=== PATIENT | male | born 1970 | race Two or more races ===

== ENCOUNTER 2022-03-01 12:35 | Inpatient (IN) | payer BC, OTHER ==
[~2022-03-01] VITALS: Ht 195.6 cm; Wt 123.6 kg
[2022-03-01 13:26] LABS: Basophils # (auto) 0.1 10 ^3/uL (0-0.2); Basophils % (auto) 1.8 % (0.0-2.0); Eosinophils # (auto) 0.2 10 ^3/uL (0-0.8); Eosinophils % (auto) 2.1 % (0.0-7.0); Hematocrit 37.4 % (41.0-53.0); Hemoglobin 13.1 g/dL (13.5-17.5); Lymphocytes # (auto) 0.8 10 ^3/uL (0.4-5.4); Lymphocytes % (auto) 11.2 % (10.0-50.0); Mean Corpuscular Hemoglobin 28.3 pg (28.0-32.0); Mean Corpuscular Volume 80.8 fL (80.0-100.0); Monocytes # (auto) 0.5 10 ^3/uL (0-1.3); Monocytes % (auto) 6.4 % (0.0-12.0); Neutrophils # (auto) 5.8 10 ^3/uL (1.6-8.6); Neutrophils % (auto) 78.5 % (37.0-80.0); Nucleated Red Blood Cells % 0.1 %; Red Blood Cells 4.62 10^6/uL (4.5-5.90); Red Cell Distribution Width 14.5 % (11.8-14.3); White Blood Cell 7.4 10^3/uL (4.4-10.8)
[2022-03-01 14:30] LABS: Potassium 3.7 mmol/L (3.5-5.1)
[2022-03-01 14:35] LABS: Albumin 2.3 g/dL (3.4-5.0); BUN/Creatinine Ratio 19.6; Bilirubin, Total 0.8 mg/dL (0.2-1.0); Total Protein 5.8 g/dL (6.4-8.2)
[2022-03-01 20:30] VITALS: BP 116/78
[2022-03-01 21:00] VITALS: BP 116/78
[2022-03-01] MEDS: BUMETANIDE 2.5mg/10ml (0.25 mg/ml) INJ IV SCH (22:04)
[2022-03-01] MEDS ORDERED: KETOROLAC TROMETH 30 MG/ML 1ML VIAL IV ONE (23:15)
[2022-03-01] MEDS ORDERED: ADENOSINE 6 MG/2 ML INJ IV ONE ×3 (23:27→23:34)
[2022-03-01] MEDS: AMIODARONE HCL (50 MG/ ML) 3 ML VIAL IV ONE ×2 (23:39→23:58)
[2022-03-01] MEDS ORDERED: AMIODARONE 450mg/250ml AE 250 ML IV ONE (23:40)
[2022-03-02] VITALS (70 sets, daily range): BP systolic 94–181; BP diastolic 53–150
[2022-03-02] MEDS ORDERED: EMPA1TAB PO (00:53)
[2022-03-02] MEDS ORDERED: SACU1TAB4 PO (00:53)
[2022-03-02] MEDS ORDERED: CARV25TA55 PO (00:53)
[2022-03-02] MEDS ORDERED: ATOR80TA PO (00:53)
[2022-03-02] MEDS ORDERED: EPLE25TA4 PO (00:53)
[2022-03-02] MEDS ORDERED: FURO40TA4 PO (00:53)
[2022-03-02] MEDS ORDERED: CHOL200021 PO (00:53)
[2022-03-02] MEDS ORDERED: ALBUMIN 5% 250 ML IV ONE (01:00)
[2022-03-02] MEDS: THROAT LOZENGES(CEPASTAT) MT PRN ×3 (01:08→13:05)
[2022-03-02] MEDS ORDERED: AMIODARONE HCL 150 MG in D5W 5% 100 ML IV ONE (01:45)
[2022-03-02] MEDS ORDERED: AMIODARONE 450mg/250ml AE 250 ML IV SCH (02:00)
[2022-03-02 03:01] LABS: Calcium 7.4 mg/dL (8.5-10.1); Magnesium 1.9 mg/dL (1.6-2.6); Potassium 3.5 mmol/L (3.5-5.1)
[2022-03-02 03:03] LABS: BUN/Creatinine Ratio 15.4
[2022-03-02 03:06] LABS: Bilirubin, Total 1.3 mg/dL (0.2-1.0); Total Protein 5.1 g/dL (6.4-8.2)
[2022-03-02 05:05] LABS: Basophils # (auto) 0.1 10 ^3/uL (0-0.2); Basophils % (auto) 0.7 % (0.0-2.0); Eosinophils # (auto) 0 10 ^3/uL (0-0.8); Eosinophils % (auto) 0.5 % (0.0-7.0); Hemoglobin 11.7 g/dL (13.5-17.5); Lymphocytes % (auto) 11.5 % (10.0-50.0); Mean Corpuscular Hgb Conc. 35.6 g/dL (32.0-36.0); Mean Corpuscular Volume 81.4 fL (80.0-100.0); Monocytes # (auto) 0.6 10 ^3/uL (0-1.3); Monocytes % (auto) 6.8 % (0.0-12.0); Neutrophils # (auto) 7.2 10 ^3/uL (1.6-8.6); Neutrophils % (auto) 80.5 % (37.0-80.0); Nucleated Red Blood Cells % 0.1 %; Red Blood Cells 4.05 10^6/uL (4.5-5.90); Red Cell Distribution Width 14.6 % (11.8-14.3); White Blood Cell 8.9 10^3/uL (4.4-10.8)
[2022-03-02 05:22] LABS: Calcium 7.4 mg/dL (8.5-10.1); Potassium 3.7 mmol/L (3.5-5.1)
[2022-03-02 05:24] LABS: BUN/Creatinine Ratio 17.1
[2022-03-02 05:26] LABS: Bilirubin, Total 1.6 mg/dL (0.2-1.0)
[2022-03-02] MEDS ORDERED: dilTIAZem 25 MG/5 ML VIAL IV ONE ×2 (06:52→07:00)
[2022-03-02] MEDS: AMIODARONE 450mg/250ml AE 250 ML IV SCH ×2 (07:49→23:07)
[2022-03-02] MEDS: BUMETANIDE 2.5mg/10ml (0.25 mg/ml) INJ IV SCH ×2 (10:39→20:34)
[2022-03-02] MEDS: ENOXAPARIN SOD 40 MG/0.4 ML SYRINGE SC SCH (10:39)
[2022-03-02] MEDS ORDERED: DOBUTamine 1000MCG/ML 250 ML IV SCH (11:45)
[2022-03-02] MEDS: ALBUTEROL SULF 2.5 MG/0.5ML(0.5%) NEB SOLN NEB SCH ×2 (13:47→22:26)
[2022-03-02] MEDS: ACETYLCYSTEINE 10 %(100MG/ML) SOL 4ML NEB SCH ×2 (13:48→22:26)
[2022-03-02] MEDS: ACETAMINOPHEN 325 MG TAB PO PRN (14:40)
[2022-03-02 15:13] LABS: Magnesium 1.9 mg/dL (1.6-2.6); Phosphorus 3.5 mg/dL (2.5-4.90)
[2022-03-02] MEDS ORDERED: DIGOXIN (250MCG/ML) 2 ML AMPULE IV ONE (19:15)
[2022-03-02 19:48] LABS: Urine Bacteria NONE SEEN /hpf (None Seen); Urine Blood 1+ /uL (Negative); Urine Budding Yeast FEW /hpf (None Seen); Urine Hyaline Cast MANY /lpf (0 - 2); Urine Mucus FEW (None Seen); Urine Specific Gravity 1.019 (1.001-1.035); Urine WBC 8 /hpf (0 - 3)
[2022-03-02 20:09] LABS: Protein, Urine 475.8 mg/dL (0.0-11.9)
[2022-03-03] VITALS (17 sets, daily range): BP systolic 101–142; BP diastolic 73–109
[2022-03-03] MEDS: THROAT LOZENGES(CEPASTAT) MT PRN (04:45)
[2022-03-03 05:14] LABS: BUN/Creatinine Ratio 18.4; Calcium 7.5 mg/dL (8.5-10.1); Potassium 3.8 mmol/L (3.5-5.1)
[2022-03-03] MEDS: ALBUTEROL SULF 2.5 MG/0.5ML(0.5%) NEB SOLN NEB SCH ×3 (05:41→21:58)
[2022-03-03] MEDS: ACETYLCYSTEINE 10 %(100MG/ML) SOL 4ML NEB SCH ×3 (05:41→21:58)
[2022-03-03] MEDS ORDERED: NITROGLYCERIN 0.4 MG SL TAB SL PRN (09:00)
[2022-03-03] MEDS: BUMETANIDE 2.5mg/10ml (0.25 mg/ml) INJ IV SCH ×2 (09:14→21:38)
[2022-03-03] MEDS: ENOXAPARIN SOD 40 MG/0.4 ML SYRINGE SC SCH (09:15)
[2022-03-03] MEDS: AMIODARONE 450mg/250ml AE 250 ML IV SCH (11:11)
[2022-03-03] MEDS ORDERED: POLYETHYLENE GLYCOL 17 GM PWDR PO PRN (15:30)
[2022-03-03] MEDS ORDERED: POLYETHYLENE GLYCOL 17 GM PWDR ONE (21:24)
[2022-03-04] VITALS (9 sets, daily range): BP systolic 106–133; BP diastolic 71–93
[2022-03-04] MEDS: AMIODARONE 450mg/250ml AE 250 ML IV SCH (00:11)
[2022-03-04] MEDS: ACETAMINOPHEN 325 MG TAB PO PRN (01:25)
[2022-03-04 05:28] LABS: Calcium 7.5 mg/dL (8.5-10.1)
[2022-03-04 05:31] LABS: BUN/Creatinine Ratio 21.8
[2022-03-04] MEDS: ALBUTEROL SULF 2.5 MG/0.5ML(0.5%) NEB SOLN NEB SCH ×2 (06:15→14:36)
[2022-03-04] MEDS: ACETYLCYSTEINE 10 %(100MG/ML) SOL 4ML NEB SCH ×2 (06:15→14:36)
[2022-03-04] MEDS: ENOXAPARIN SOD 40 MG/0.4 ML SYRINGE SC SCH (09:09)
[2022-03-04] MEDS: BUMETANIDE 2.5mg/10ml (0.25 mg/ml) INJ IV SCH (09:15)
[2022-03-04] MEDS ORDERED: ENOXAPARIN SOD 100 MG/1 ML SYRINGE SC SCH ×2 (11:15→22:00)
[2022-03-04] MEDS ORDERED: ENOXAPARIN SOD 60 MG/0.6 ML SYRINGE SC ONE (12:00)
[2022-03-04] MEDS ORDERED: metOLazone 5 MG TAB PO ONE (12:00)
[2022-03-04] MEDS ORDERED: AMIODARONE HCL 200 MG TAB PO SCH (12:31)
[2022-03-04] MEDS ORDERED: CALCIUM CARB 500 MG CHEW TAB PO PRN (12:45)
[2022-03-04] MEDS ORDERED: ALUM & MAG HYDROX-SIMETH LIQ(MAALOX) 30 ML PO ONE (15:00)
== END 2022-03-04 16:00 | disposition short-term general hospital (02) | DRG 280 ==
LOC: ER 12:35 → TELE 18:04 → TELE-WESTW 20:25 → DOU IN ICU 03-02 00:30
PROVIDERS: ADMIT Internal Medicine; ATTEND Internal Medicine
DX: I21.4 Non-ST elevation (NSTEMI) myocardial infarction (principal); J96.01 Acute respiratory failure with hypoxia; I50.23 Acute on chronic systolic (congestive) heart failure; N17.0 Acute kidney failure with tubular necrosis; I13.0 Hypertensive heart and chronic kidney disease with heart failure and stage 1 through stage 4 chronic kidney disease, or unspecified chronic kidney disease; I42.8 Other cardiomyopathies; I47.1 Supraventricular tachycardia; E55.9 Vitamin D deficiency, unspecified; E66.01 Morbid (severe) obesity due to excess calories; Z20.822 Contact with and (suspected) exposure to COVID-19; N18.31 Chronic kidney disease, stage 3a; R53.81 Other malaise; Z68.32 Body mass index [BMI] 32.0-32.9, adult; Z80.9 Family history of malignant neoplasm, unspecified; Z79.899 Other long term (current) drug therapy
CPT/HCPCS: 36415; 71045; 80048; 80053; 81001; 82306; 82570; 82962; 83036; 83735; 83880; 83970; 84100; 84156; 84300; 84484; 85025; 87081; 93005; 93306; 94640; 99291; G0378; J0153; J1885; J7060

== ENCOUNTER 2022-08-04 19:45 | Inpatient (IN) | payer BC, OTHER ==
[~2022-08-04] VITALS: Ht 190.5 cm; Wt 113.0 kg
[~2022-08-04 19:45] MED LIST: ATOR80TA PO; CARV25TA55 PO; CHOL200021 PO; EMPA1TAB PO; EPLE25TA4 PO; FURO40TA4 PO; SACU1TAB4 PO
[2022-08-04] MEDS ORDERED: dilTIAZem 25 MG/5 ML VIAL IV ONE ×2 (20:30)
[2022-08-04] MEDS ORDERED: SODIUM CHLORIDE 0.9% 1,000 ML IV ONE (21:00)
[2022-08-04] MEDS ORDERED: AMIODARONE HCL 150 MG in D5W 5% 100 ML IV ONE (22:00)
[2022-08-04 22:01] LABS: Basophils # (auto) 0.1 10 ^3/uL (0-0.2); Basophils % (auto) 1.5 % (0.0-2.0); Eosinophils # (auto) 0.2 10 ^3/uL (0-0.8); Eosinophils % (auto) 5.2 % (0.0-7.0); Hematocrit 35.5 % (41.0-53.0); Hemoglobin 11.8 g/dL (13.5-17.5); Lymphocytes # (auto) 1.3 10 ^3/uL (0.4-5.4); Lymphocytes % (auto) 35.2 % (10.0-50.0); Mean Corpuscular Hemoglobin 27.2 pg (28.0-32.0); Mean Corpuscular Hgb Conc. 33.4 g/dL (32.0-36.0); Mean Corpuscular Volume 81.6 fL (80.0-100.0); Monocytes # (auto) 0.3 10 ^3/uL (0-1.3); Monocytes % (auto) 8.2 % (0.0-12.0); Neutrophils # (auto) 1.9 10 ^3/uL (1.6-8.6); Neutrophils % (auto) 49.9 % (37.0-80.0); Nucleated Red Blood Cells % 0.2 %; Red Blood Cells 4.35 10^6/uL (4.5-5.90); Red Cell Distribution Width 16.8 % (11.8-14.3); White Blood Cell 3.8 10^3/uL (4.4-10.8)
[2022-08-04] MEDS ORDERED: AMIODARONE HCL (50 MG/ ML) 3 ML VIAL IV ONE (22:02)
[2022-08-04] MEDS ORDERED: AMIODARONE 450mg/250ml AE 250 ML IV SCH (22:15)
[2022-08-04 22:16] LABS: Albumin 1.9 g/dL (3.4-5.0); Calcium 7.2 mg/dL (8.5-10.1); Magnesium 2.9 mg/dL (1.6-2.6); Potassium 4.6 mmol/L (3.5-5.1)
[2022-08-04 22:18] LABS: INR 1.08 (0.9-1.15); Partial Thromboplastin Time 27.9 sec (24.6-33.4)
[2022-08-04 22:19] LABS: BUN/Creatinine Ratio 23.8; Bilirubin, Total 0.3 mg/dL (0.2-1.0); Total Protein 4.5 g/dL (6.4-8.2)
[2022-08-04] MEDS ORDERED: DOCUSATE SOD 100 MG CAP PO PRN (22:30)
[2022-08-04] MEDS ORDERED: ONDANSETRON HCL 4 MG/2 ML VIAL IV PRN (22:30)
[2022-08-04] MEDS ORDERED: ACETAMINOPHEN 325 MG TAB PO PRN (22:30)
[2022-08-04] MEDS ORDERED: D5W 5% IV ONE (23:30)
[2022-08-04] MEDS ORDERED: AMIODARONE HCL IV ONE (23:30)
[2022-08-04] MEDS ORDERED: NITROGLYCERIN 0.4 MG SL TAB SL PRN (23:45)
[2022-08-04] MEDS ORDERED: MORPHINE SULFATE INJ 2 MG/ml SYRG IV PRN (23:45)
[2022-08-05] MEDS ORDERED: AMIODARONE HCL (50 MG/ ML) 3 ML VIAL IV ONE (00:25)
[2022-08-05] MEDS: ALBUMIN 25% 100 ML IV SCH ×2 (02:45→09:51)
[2022-08-05] MEDS ORDERED: AMIODARONE 450mg/250ml AE 250 ML IV SCH (04:15)
[2022-08-05 05:26] LABS: Basophils # (auto) 0.1 10 ^3/uL (0-0.2); Basophils % (auto) 1.8 % (0.0-2.0); Eosinophils # (auto) 0.2 10 ^3/uL (0-0.8); Hematocrit 35.3 % (41.0-53.0); Hemoglobin 11.8 g/dL (13.5-17.5); Lymphocytes # (auto) 1.2 10 ^3/uL (0.4-5.4); Lymphocytes % (auto) 33.4 % (10.0-50.0); Mean Corpuscular Hemoglobin 27.9 pg (28.0-32.0); Mean Corpuscular Hgb Conc. 33.5 g/dL (32.0-36.0); Mean Corpuscular Volume 83.2 fL (80.0-100.0); Monocytes # (auto) 0.3 10 ^3/uL (0-1.3); Monocytes % (auto) 7.3 % (0.0-12.0); Neutrophils # (auto) 1.9 10 ^3/uL (1.6-8.6); Neutrophils % (auto) 52.5 % (37.0-80.0); Red Blood Cells 4.24 10^6/uL (4.5-5.90); Red Cell Distribution Width 16.6 % (11.8-14.3); White Blood Cell 3.6 10^3/uL (4.4-10.8)
[2022-08-05] MEDS: SODIUM CHLOR 0.9% PF (SALINE LOCK) 10ML VIAL/SYR IV SCH ×2 (06:29→14:52)
[2022-08-05 07:28] LABS: Albumin 2.2 g/dL (3.4-5.0); Calcium 7.3 mg/dL (8.5-10.1); Magnesium 2.9 mg/dL (1.6-2.6); Potassium 4.5 mmol/L (3.5-5.1)
[2022-08-05 07:31] LABS: BUN/Creatinine Ratio 22.7; Bilirubin, Total 0.6 mg/dL (0.2-1.0)
[2022-08-05] MEDS ORDERED: ASPirin 81 mg TAB PO SCH (10:00)
[2022-08-05] MEDS ORDERED: FAMOTIDINE (10MG/ML) 2ML VL IV SCH (10:00)
[2022-08-05] MEDS ORDERED: HEPARIN SODIUM (PORCINE) 5000 UNITS/ML 1ML VIAL SC SCH (10:00)
[2022-08-05] MEDS ORDERED: FUROSEMIDE 40 MG/4 ML VIAL IV SCH ×2 (10:00→18:00)
[2022-08-05] MEDS ORDERED: CARVEDILOL 12.5 MG TAB PO SCH (10:00)
[2022-08-05] MEDS ORDERED: METOPROLOL TARTRATE 1MG/1ML-5ML VIAL IV ONE (12:00)
[2022-08-05 13:19] LABS: Cholesterol 196 mg/dL (< 200)
[2022-08-05 13:21] LABS: HDL Cholesterol 36 mg/dL (40-59); LDL Cholesterol 149 mg/dL (< 100); Triglycerides 65 mg/dL (< 150)
[2022-08-05] MEDS ORDERED: AMIODARONE HCL 200 MG TAB PO ONE (13:45)
[2022-08-05] MEDS ORDERED: DIGOXIN (250MCG/ML) 2 ML AMPULE IV ONE (13:45)
[2022-08-05 13:58] LABS: Urine Amorphous Crystal FEW /hpf (None Seen); Urine Bacteria NONE SEEN /hpf (None Seen); Urine Blood 1+ /uL (Negative); Urine Specific Gravity 1.017 (1.001-1.035); Urine WBC 1 /hpf (0 - 3)
[2022-08-05 14:03] LABS: Alcohol, Urine < 3.0 mg/dL (0-10); Amphetamine Screen, Urine NEGATIVE (NEGATIVE); Barbiturate Scree,Urine NEGATIVE (NEGATIVE); Benzodiazephine Screen, Urine NEGATIVE (NEGATIVE); Cannabinoid Screen, Urine NEGATIVE (NEGATIVE); Cocaine Screen, Urine NEGATIVE (NEGATIVE); Opiate Scree,Urine NEGATIVE (NEGATIVE); Phencyclidine Screen, Urine NEGATIVE (NEGATIVE)
[2022-08-05 15:00] VITALS: BP 100/60
[2022-08-05] MEDS ORDERED: ENOXAPARIN SOD 120 MG/0.8 ML SYRINGE SC SCH (22:00)
[2022-08-05] MEDS ORDERED: AMIODARONE HCL 200 MG TAB PO SCH ×2 (22:00)
[2022-08-05] MEDS ORDERED: ATORVASTATIN 20 MG TAB PO SCH (22:00)
[2022-08-06] MEDS ORDERED: DIGOXIN 0.125 MG TAB PO SCH (10:00)
== END 2022-08-05 16:25 | disposition left against medical advice (07) | DRG 280 ==
LOC: ER 19:45 → TELE 23:34
PROVIDERS: ADMIT Nurse Practitioner Family; ATTEND Family Medicine
DX: I47.1 Supraventricular tachycardia (principal); I21.4 Non-ST elevation (NSTEMI) myocardial infarction; I50.23 Acute on chronic systolic (congestive) heart failure; N17.9 Acute kidney failure, unspecified; E44.0 Moderate protein-calorie malnutrition; E66.9 Obesity, unspecified; Z20.822 Contact with and (suspected) exposure to COVID-19; I11.0 Hypertensive heart disease with heart failure; Z53.29 Procedure and treatment not carried out because of patient's decision for other reasons; Z95.2 Presence of prosthetic heart valve; Z91.19 Patient's noncompliance with other medical treatment and regimen; Z68.31 Body mass index [BMI] 31.0-31.9, adult
CPT/HCPCS: 36415; 71045; 80053; 80061; 80307; 81001; 83735; 83880; 84443; 84484; 85025; 85610; 85730; 93005; 93306; 96361; 96365; 96375; G0378; J3490; J7060; P9047

== ENCOUNTER 2022-09-01 20:10 | Inpatient (IN) | payer BC, OTHER ==
[~2022-09-01] VITALS: Ht 195.6 cm; Wt 127.0 kg
[2022-09-01] MEDS ORDERED: FUROSEMIDE 40 MG/4 ML VIAL IV ONE (20:30)
[2022-09-01 20:42] LABS: Basophils # (auto) 0.1 10 ^3/uL (0-0.2); Eosinophils # (auto) 0.2 10 ^3/uL (0-0.8); Lymphocytes % (auto) 27.3 % (10.0-50.0); Monocytes # (auto) 0.4 10 ^3/uL (0-1.3); White Blood Cell 4.6 10^3/uL (4.4-10.8)
[2022-09-01 20:43] LABS: Basophils % (auto) 1.9 % (0.0-2.0); Eosinophils % (auto) 4.7 % (0.0-7.0); Hematocrit 40.6 % (41.0-53.0); Hemoglobin 13.5 g/dL (13.5-17.5); Lymphocytes # (auto) 1.3 10 ^3/uL (0.4-5.4); Mean Corpuscular Hemoglobin 27.4 pg (28.0-32.0); Mean Corpuscular Hgb Conc. 33.4 g/dL (32.0-36.0); Mean Corpuscular Volume 82.2 fL (80.0-100.0); Monocytes % (auto) 8.8 % (0.0-12.0); Neutrophils # (auto) 2.6 10 ^3/uL (1.6-8.6); Neutrophils % (auto) 57.3 % (37.0-80.0); Nucleated Red Blood Cells % 0.1 %; Red Blood Cells 4.94 10^6/uL (4.5-5.90); Red Cell Distribution Width 15.7 % (11.8-14.3)
[2022-09-01 21:00] LABS: Albumin 2.1 g/dL (3.4-5.0); BUN/Creatinine Ratio 18.9; Calcium 7.3 mg/dL (8.5-10.1); Potassium 4.3 mmol/L (3.5-5.1)
[2022-09-01 21:03] LABS: Bilirubin, Total 0.5 mg/dL (0.2-1.0); Total Protein 4.9 g/dL (6.4-8.2)
[2022-09-01] MEDS ORDERED: ENOXAPARIN SOD 120 MG/0.8 ML SYRINGE SC ONE (21:15)
[2022-09-01 21:21] LABS: INR 1.12 (0.9-1.15); Partial Thromboplastin Time 34.1 sec (24.6-33.4)
[2022-09-01] MEDS ORDERED: ALBUMIN 25% 100 ML IV ONE (21:30)
[2022-09-01] MEDS ORDERED: DOCUSATE SOD 100 MG CAP PO PRN (21:30)
[2022-09-01] MEDS ORDERED: NITROGLYCERIN 0.4 MG SL TAB SL PRN ×2 (22:15)
[2022-09-02] MEDS: CARVEDILOL 12.5 MG TAB PO SCH ×3 (01:02→21:13)
[2022-09-02] MEDS: SODIUM CHLOR 0.9% PF (SALINE LOCK) 10ML VIAL/SYR IV SCH ×4 (01:02→21:13)
[2022-09-02 03:17] LABS: Urine Bacteria FEW /hpf (None Seen); Urine Blood 1+ /uL (Negative); Urine Hyaline Cast FEW /lpf (0 - 2); Urine Specific Gravity 1.009 (1.001-1.035); Urine WBC 1 /hpf (0 - 3)
[2022-09-02 05:09] LABS: Basophils # (auto) 0.1 10 ^3/uL (0-0.2); Basophils % (auto) 1.2 % (0.0-2.0); Eosinophils # (auto) 0.2 10 ^3/uL (0-0.8); Hematocrit 37.8 % (41.0-53.0); Hemoglobin 12.6 g/dL (13.5-17.5); Lymphocytes # (auto) 1.1 10 ^3/uL (0.4-5.4); Lymphocytes % (auto) 23.7 % (10.0-50.0); Mean Corpuscular Hemoglobin 27.2 pg (28.0-32.0); Mean Corpuscular Hgb Conc. 33.4 g/dL (32.0-36.0); Mean Corpuscular Volume 81.4 fL (80.0-100.0); Monocytes # (auto) 0.5 10 ^3/uL (0-1.3); Monocytes % (auto) 10.3 % (0.0-12.0); Neutrophils # (auto) 2.9 10 ^3/uL (1.6-8.6); Neutrophils % (auto) 60.8 % (37.0-80.0); Nucleated Red Blood Cells % 0.1 %; Red Blood Cells 4.64 10^6/uL (4.5-5.90); Red Cell Distribution Width 15.3 % (11.8-14.3); White Blood Cell 4.8 10^3/uL (4.4-10.8)
[2022-09-02 05:16] LABS: Albumin 2.2 g/dL (3.4-5.0); BUN/Creatinine Ratio 18.1; Calcium 7.5 mg/dL (8.5-10.1); Potassium 4.3 mmol/L (3.5-5.1)
[2022-09-02 05:19] LABS: Bilirubin, Total 0.6 mg/dL (0.2-1.0); Total Protein 4.7 g/dL (6.4-8.2)
[2022-09-02] MEDS ORDERED: ERGOCALCIFEROL 50,000 UNIT(1.25MG) CAP PO SCH (09:45)
[2022-09-02] MEDS ORDERED: FUROSEMIDE 40 MG/4 ML VIAL IV SCH (10:00)
[2022-09-02] MEDS ORDERED: HEPARIN SODIUM (PORCINE) 5000 UNITS/ML 1ML VIAL SC SCH (10:00)
[2022-09-02] MEDS ORDERED: FAMOTIDINE (10MG/ML) 2ML VL IV SCH (10:00)
[2022-09-02 10:07] LABS: Alcohol, Urine < 3.0 mg/dL (0-10); Amphetamine Screen, Urine NEGATIVE (NEGATIVE); Barbiturate Scree,Urine NEGATIVE (NEGATIVE); Benzodiazephine Screen, Urine NEGATIVE (NEGATIVE); Cannabinoid Screen, Urine NEGATIVE (NEGATIVE); Cocaine Screen, Urine NEGATIVE (NEGATIVE); Opiate Scree,Urine NEGATIVE (NEGATIVE); Phencyclidine Screen, Urine NEGATIVE (NEGATIVE); Sodium Urine 112 mmol/L (40-220)
[2022-09-02 10:18] LABS: Protein, Urine 275.2 mg/dL (0.0-11.9)
[2022-09-02] MEDS: FAMOTIDINE 20 MG TAB PO SCH (10:40)
[2022-09-02] MEDS: ASPirin 81 mg TAB PO SCH (10:43)
[2022-09-02] MEDS: FUROSEMIDE 100 MG/10ML VIAL IV SCH ×2 (10:45→17:39)
[2022-09-02] MEDS ORDERED: HEPARIN DRIP/D5W 100UNITS/ML 250 ML IV SCH ×2 (10:45→20:15)
[2022-09-02 11:50] LABS: INR 1.08 (0.9-1.15); Partial Thromboplastin Time 38.8 sec (24.6-33.4)
[2022-09-02 17:00] VITALS: BP 134/98
[2022-09-02 19:50] LABS: INR 1.09 (0.9-1.15); Partial Thromboplastin Time 42.7 sec (24.6-33.4)
[2022-09-02] MEDS: TEMAZEPAM 15 MG CAP PO PRN (21:17)
[2022-09-02 22:00] VITALS: BP 123/85
[2022-09-03 02:52] LABS: INR 1.09 (0.9-1.15)
[2022-09-03 02:56] LABS: Albumin 1.8 g/dL (3.4-5.0); Calcium 7.4 mg/dL (8.5-10.1); Magnesium 2.2 mg/dL (1.6-2.6); Potassium 4.1 mmol/L (3.5-5.1); Uric Acid 8.2 mg/dL (3.5-7.2)
[2022-09-03 03:00] LABS: BUN/Creatinine Ratio 18.6; Bilirubin, Direct 0.2 mg/dL (0-0.2); Bilirubin, Total 0.6 mg/dL (0.2-1.0); Total Protein 4.5 g/dL (6.4-8.2)
[2022-09-03 05:00] VITALS: BP 120/90
[2022-09-03] MEDS: SODIUM CHLOR 0.9% PF (SALINE LOCK) 10ML VIAL/SYR IV SCH ×3 (05:17→21:22)
[2022-09-03] MEDS: FUROSEMIDE 100 MG/10ML VIAL IV SCH ×2 (05:18→18:55)
[2022-09-03 08:07] LABS: INR 1.03 (0.9-1.15); Partial Thromboplastin Time 49.3 sec (24.6-33.4)
[2022-09-03] MEDS: ACETAMINOPHEN 325 MG TAB PO PRN (08:37)
[2022-09-03 08:50] VITALS: BP 118/81
[2022-09-03] MEDS: HEPARIN DRIP/D5W 100UNITS/ML 250 ML IV SCH (09:01)
[2022-09-03] MEDS: ASPirin 81 mg TAB PO SCH (12:14)
[2022-09-03] MEDS: FAMOTIDINE 20 MG TAB PO SCH (12:14)
[2022-09-03] MEDS: CARVEDILOL 12.5 MG TAB PO SCH ×2 (12:16→21:22)
[2022-09-03 13:00] VITALS: BP 129/90
[2022-09-03 14:54] LABS: INR 1.06 (0.9-1.15); Partial Thromboplastin Time 50.8 sec (24.6-33.4)
[2022-09-03 17:00] VITALS: BP 127/89
[2022-09-03 22:00] VITALS: BP 117/90
[2022-09-03 22:23] LABS: INR 1.06 (0.9-1.15); Partial Thromboplastin Time 54.3 sec (24.6-33.4)
[2022-09-03] MEDS ORDERED: ALBUMIN 5% 250 ML IV ONE (23:45)
[2022-09-04 00:50] VITALS: BP 110/75
[2022-09-04] MEDS ORDERED: dilTIAZem 25 MG/5 ML VIAL IV ONE (02:45)
[2022-09-04] MEDS: HEPARIN DRIP/D5W 100UNITS/ML 250 ML IV SCH ×2 (02:49→22:11)
[2022-09-04 03:24] LABS: INR 1.08 (0.9-1.15); Partial Thromboplastin Time 66.2 sec (24.6-33.4)
[2022-09-04 05:00] VITALS: BP 121/89
[2022-09-04] MEDS: SODIUM CHLOR 0.9% PF (SALINE LOCK) 10ML VIAL/SYR IV SCH ×3 (06:26→22:11)
[2022-09-04] MEDS: FUROSEMIDE 100 MG/10ML VIAL IV SCH ×2 (06:27→18:41)
[2022-09-04 07:06] LABS: Immunoglobulin G, Serum 498 mg/dL (603-1613)
[2022-09-04] MEDS ORDERED: AMIODARONE 450mg/250ml AE 250 ML IV SCH (07:47)
[2022-09-04 09:00] VITALS: BP 128/96
[2022-09-04] MEDS: ASPirin 81 mg TAB PO SCH (09:35)
[2022-09-04] MEDS: FAMOTIDINE 20 MG TAB PO SCH (09:36)
[2022-09-04] MEDS: CARVEDILOL 12.5 MG TAB PO SCH ×2 (09:36→22:04)
[2022-09-04] MEDS: AMIODARONE 450mg/250ml AE 250 ML IV SCH ×2 (12:44→20:27)
[2022-09-04 13:00] VITALS: BP 122/82
[2022-09-04] MEDS ORDERED: SACU1TAB7 PO (13:21)
[2022-09-04] MEDS ORDERED: CARV6.2551 PO (13:21)
[2022-09-04 17:00] VITALS: BP 121/84
[2022-09-04 22:00] VITALS: BP 114/81
[2022-09-05] MEDS: AMIODARONE 450mg/250ml AE 250 ML IV SCH ×4 (03:39→20:03)
[2022-09-05 05:00] VITALS: BP 129/92
[2022-09-05 06:07] LABS: Basophils # (auto) 0 10 ^3/uL (0-0.2); Basophils % (auto) 0.9 % (0.0-2.0); Eosinophils # (auto) 0.1 10 ^3/uL (0-0.8); Eosinophils % (auto) 4.4 % (0.0-7.0); Hematocrit 38.3 % (41.0-53.0); Lymphocytes # (auto) 1.3 10 ^3/uL (0.4-5.4); Mean Corpuscular Hemoglobin 27.6 pg (28.0-32.0); Mean Corpuscular Hgb Conc. 33.9 g/dL (32.0-36.0); Mean Corpuscular Volume 81.6 fL (80.0-100.0); Monocytes # (auto) 0.3 10 ^3/uL (0-1.3); Monocytes % (auto) 8.6 % (0.0-12.0); Neutrophils # (auto) 1.7 10 ^3/uL (1.6-8.6); Neutrophils % (auto) 49.1 % (37.0-80.0); Nucleated Red Blood Cells % 0.3 %; Red Cell Distribution Width 15.3 % (11.8-14.3); White Blood Cell 3.4 10^3/uL (4.4-10.8)
[2022-09-05 06:20] LABS: INR 1.08 (0.9-1.15)
[2022-09-05] MEDS: FUROSEMIDE 100 MG/10ML VIAL IV SCH ×2 (06:23→17:13)
[2022-09-05 06:24] LABS: BUN/Creatinine Ratio 19.9; Calcium 7.6 mg/dL (8.5-10.1)
[2022-09-05] MEDS: SODIUM CHLOR 0.9% PF (SALINE LOCK) 10ML VIAL/SYR IV SCH ×3 (06:24→22:26)
[2022-09-05 08:48] VITALS: BP 122/87
[2022-09-05] MEDS: CARVEDILOL 12.5 MG TAB PO SCH ×2 (09:21→22:27)
[2022-09-05] MEDS: ASPirin 81 mg TAB PO SCH (09:21)
[2022-09-05] MEDS: FAMOTIDINE 20 MG TAB PO SCH (09:22)
[2022-09-05] MEDS ORDERED: LIDOCAINE 2% (LOCAL ANESTH.) PF 5ml SDV ONE (10:20)
[2022-09-05 13:00] VITALS: BP 112/84
[2022-09-05] MEDS ORDERED: IPRATROPIUM BROM 0.5 MG/2.5ML INH SOL NEB PRN (13:30)
[2022-09-05] MEDS ORDERED: ALBUTEROL SULF 2.5 MG/0.5ML(0.5%) NEB SOLN NEB PRN (13:30)
[2022-09-05] MEDS: HEPARIN DRIP/D5W 100UNITS/ML 250 ML IV SCH ×2 (14:21→17:18)
[2022-09-05 15:46] VITALS: BP 121/84
[2022-09-05 22:00] VITALS: BP 102/69
[2022-09-06] MEDS: TEMAZEPAM 15 MG CAP PO PRN (01:33)
[2022-09-06] MEDS: AMIODARONE 450mg/250ml AE 250 ML IV SCH (03:23)
[2022-09-06 04:52] VITALS: BP 118/87
[2022-09-06] MEDS: SODIUM CHLOR 0.9% PF (SALINE LOCK) 10ML VIAL/SYR IV SCH ×3 (05:46→21:39)
[2022-09-06] MEDS: FUROSEMIDE 100 MG/10ML VIAL IV SCH ×2 (05:46→17:17)
[2022-09-06 06:19] LABS: INR 1.09 (0.9-1.15); Partial Thromboplastin Time 56.3 sec (24.6-33.4)
[2022-09-06 08:06] LABS: Immunoglobulin G, Serum 589 mg/dL (603-1613)
[2022-09-06] MEDS: ACETAMINOPHEN 325 MG TAB PO PRN (08:49)
[2022-09-06] MEDS: AMIODARONE HCL 200 MG TAB PO SCH ×2 (08:49→21:39)
[2022-09-06] MEDS: FAMOTIDINE 20 MG TAB PO SCH (08:50)
[2022-09-06] MEDS: CARVEDILOL 12.5 MG TAB PO SCH ×2 (08:50→21:40)
[2022-09-06 09:00] VITALS: BP 130/95
[2022-09-06] MEDS ORDERED: MIDAZOLAM HCL 2MG/2ML 2ml VIAL (1mg/ml) ONE (09:06)
[2022-09-06] MEDS ORDERED: fentaNYL CITRATE 100 MCG/2 ML VL ONE (09:06)
[2022-09-06] MEDS: ASPirin 81 mg TAB PO SCH (10:00)
[2022-09-06] MEDS: ONDANSETRON HCL 4 MG/2 ML VIAL IV PRN ×2 (10:12→17:38)
[2022-09-06] MEDS ORDERED: MORPHINE SULFATE INJ 2 MG/ml SYRG IV PRN (11:30)
[2022-09-06] MEDS ORDERED: HYDROcodone-ACET 10/325MG TAB PO PRN (11:30)
[2022-09-06 13:00] VITALS: BP 128/78
[2022-09-06] MEDS ORDERED: traMADol HCL 50 MG TAB PO PRN ×2 (14:00)
[2022-09-06 16:43] VITALS: BP 121/86
[2022-09-06] MEDS: HEPARIN DRIP/D5W 100UNITS/ML 250 ML IV SCH (17:24)
[2022-09-06 20:20] VITALS: BP 135/86
[2022-09-06 22:00] VITALS: BP 135/86
[2022-09-07 05:00] VITALS: BP 113/81
[2022-09-07] MEDS: FUROSEMIDE 100 MG/10ML VIAL IV SCH ×2 (05:17→17:56)
[2022-09-07] MEDS: SODIUM CHLOR 0.9% PF (SALINE LOCK) 10ML VIAL/SYR IV SCH ×3 (05:17→23:02)
[2022-09-07 06:09] LABS: INR 1.08 (0.9-1.15); Partial Thromboplastin Time 53.2 sec (24.6-33.4)
[2022-09-07] MEDS: ACETAMINOPHEN 325 MG TAB PO PRN (08:06)
[2022-09-07 09:00] VITALS: BP 116/81
[2022-09-07] MEDS: AMIODARONE HCL 200 MG TAB PO SCH ×2 (09:37→23:02)
[2022-09-07] MEDS: ASPirin 81 mg TAB PO SCH (09:37)
[2022-09-07] MEDS: CARVEDILOL 12.5 MG TAB PO SCH ×2 (09:39→22:00)
[2022-09-07] MEDS: FAMOTIDINE 20 MG TAB PO SCH (09:40)
[2022-09-07] MEDS: APIXABAN 5 MG TAB PO SCH ×2 (09:40→23:03)
[2022-09-07 13:00] VITALS: BP 117/65
[2022-09-07 17:00] VITALS: BP 131/88
[2022-09-07 22:00] VITALS: BP 100/74
[2022-09-07] MEDS: TEMAZEPAM 15 MG CAP PO PRN (23:03)
[2022-09-07 23:17] VITALS: BP 100/74
[2022-09-08 05:00] VITALS: BP 117/85
[2022-09-08] MEDS: SODIUM CHLOR 0.9% PF (SALINE LOCK) 10ML VIAL/SYR IV SCH ×2 (06:56→15:01)
[2022-09-08] MEDS: FUROSEMIDE 100 MG/10ML VIAL IV SCH (06:56)
[2022-09-08 08:00] VITALS: BP 129/74
[2022-09-08 09:00] VITALS: BP 129/74
[2022-09-08] MEDS: ASPirin 81 mg TAB PO SCH (10:32)
[2022-09-08] MEDS: APIXABAN 5 MG TAB PO SCH (10:33)
[2022-09-08] MEDS: CARVEDILOL 12.5 MG TAB PO SCH (10:33)
[2022-09-08] MEDS: AMIODARONE HCL 200 MG TAB PO SCH (10:33)
[2022-09-08] MEDS: FAMOTIDINE 20 MG TAB PO SCH (10:34)
[2022-09-08 13:00] VITALS: BP 131/93
[2022-09-08] MEDS ORDERED: APIX5TAB PO (14:03)
[2022-09-08] MEDS ORDERED: CAR125T PO (14:03)
[2022-09-08] MEDS ORDERED: FURO1TAB33 PO (14:03)
[2022-09-08] MEDS ORDERED: AMIO200T33 PO (14:04)
[2022-09-08 15:23] VITALS: BP 131/93
== END 2022-09-08 17:00 | disposition home or self-care (01) | DRG 280 ==
LOC: ER 20:10 → TELE 22:05 → TELE-WESTW 09-02 16:38
PROVIDERS: ADMIT Nurse Practitioner Family; ATTEND Student in an Organized Health Care Education/Training Program
PROC: 0TB03ZX Excision of Right Kidney, Percutaneous Approach, Diagnostic (ICD-10-PCS; principal; 2022-09-06)
DX: I11.0 Hypertensive heart disease with heart failure (principal); I50.43 Acute on chronic combined systolic (congestive) and diastolic (congestive) heart failure; I21.A1 Myocardial infarction type 2; N17.0 Acute kidney failure with tubular necrosis; E46 Unspecified protein-calorie malnutrition; I47.1 Supraventricular tachycardia; I48.92 Unspecified atrial flutter; I51.3 Intracardiac thrombosis, not elsewhere classified; E88.09 Other disorders of plasma-protein metabolism, not elsewhere classified; N18.32 Chronic kidney disease, stage 3b; Z20.822 Contact with and (suspected) exposure to COVID-19; E66.01 Morbid (severe) obesity due to excess calories; E78.5 Hyperlipidemia, unspecified; I42.9 Cardiomyopathy, unspecified; I48.91 Unspecified atrial fibrillation; Z79.01 Long term (current) use of anticoagulants; Z88.5 Allergy status to narcotic agent; Z79.84 Long term (current) use of oral hypoglycemic drugs; Z79.899 Other long term (current) drug therapy; Z86.718 Personal history of other venous thrombosis and embolism; Z87.891 Personal history of nicotine dependence; Z91.14 Patient's other noncompliance with medication regimen; Z95.2 Presence of prosthetic heart valve; Z68.31 Body mass index [BMI] 31.0-31.9, adult
CPT/HCPCS: 10005; 36415; 71045; 74150; 76775; 77012; 78582; 80048; 80053; 80076; 80307; 81001; 82306; 82570; 82784; 83036; 83520; 83735; 83880; 83935; 84100; 84156; 84166; 84300; 84484; 84550; 85025; 85379; 85610; 85730; 86160; 86256; 86334; 86335; 86703; 87426; 93005; 93306; 93970; 96365; 96372; 96375; G0378; J2001; J2250; J2405; J3490; P9047

== ENCOUNTER 2022-09-11 22:36 | Inpatient (IN) | payer BC, OTHER ==
[~2022-09-11] VITALS: Ht 195.6 cm; Wt 130.0 kg
[~2022-09-11 22:36] MED LIST changes: +AMIO200T33 PO; +APIX5TAB PO; +CAR125T PO; -CARV25TA55 PO; +CARV6.2551 PO; +FURO1TAB33 PO; -SACU1TAB4 PO; +SACU1TAB7 PO
[2022-09-11 23:52] LABS: Basophils # (auto) 0 10 ^3/uL (0-0.2); Eosinophils # (auto) 0.2 10 ^3/uL (0-0.8); Eosinophils % (auto) 4.1 % (0.0-7.0); Hematocrit 37.5 % (41.0-53.0); Hemoglobin 12.8 g/dL (13.5-17.5); Lymphocytes # (auto) 1.3 10 ^3/uL (0.4-5.4); Lymphocytes % (auto) 30.3 % (10.0-50.0); Mean Corpuscular Hemoglobin 27.7 pg (28.0-32.0); Mean Corpuscular Hgb Conc. 34.2 g/dL (32.0-36.0); Mean Corpuscular Volume 80.8 fL (80.0-100.0); Monocytes # (auto) 0.4 10 ^3/uL (0-1.3); Monocytes % (auto) 10.3 % (0.0-12.0); Neutrophils # (auto) 2.3 10 ^3/uL (1.6-8.6); Neutrophils % (auto) 54.3 % (37.0-80.0); Nucleated Red Blood Cells % 0.2 %; Red Blood Cells 4.64 10^6/uL (4.5-5.90); Red Cell Distribution Width 15.9 % (11.8-14.3); White Blood Cell 4.3 10^3/uL (4.4-10.8)
[2022-09-12 00:09] LABS: Albumin 2.1 g/dL (3.4-5.0); BUN/Creatinine Ratio 18.4; Calcium 7.5 mg/dL (8.5-10.1); Potassium 4.4 mmol/L (3.5-5.1)
[2022-09-12 00:12] LABS: Bilirubin, Total 0.4 mg/dL (0.2-1.0); Total Protein 4.9 g/dL (6.4-8.2)
[2022-09-12] MEDS ORDERED: ASPirin 325 MG TAB PO ONE (01:00)
[2022-09-12] MEDS ORDERED: FUROSEMIDE 100 MG/10ML VIAL IV ONE (01:00)
[2022-09-12] MEDS ORDERED: ACETAMINOPHEN 325 MG TAB PO PRN (04:30)
[2022-09-12] MEDS ORDERED: MORPHINE SULFATE INJ 2 MG/ml SYRG IV PRN (04:30)
[2022-09-12] MEDS ORDERED: ONDANSETRON HCL 4 MG/2 ML VIAL IV PRN (04:30)
[2022-09-12] MEDS ORDERED: NITROGLYCERIN 0.4 MG SL TAB SL PRN (04:30)
[2022-09-12] MEDS ORDERED: FUROSEMIDE 40 MG/4 ML VIAL IV SCH (06:00)
[2022-09-12] MEDS: FUROSEMIDE 40 MG/4 ML VIAL IV SCH ×2 (09:42→18:09)
[2022-09-12] MEDS: CARVEDILOL 12.5 MG TAB PO SCH ×2 (09:43→22:14)
[2022-09-12] MEDS: AMIODARONE HCL 200 MG TAB PO SCH ×2 (09:43→22:14)
[2022-09-12] MEDS: APIXABAN 5 MG TAB PO SCH ×2 (09:44→22:13)
[2022-09-12] MEDS: PANTOPRAZOLE 40 MG TAB PO SCH (09:44)
[2022-09-12] MEDS: SACUBITRIL-VALSARTAN 24mg/26mg TAB PO SCH ×2 (09:44→22:12)
[2022-09-12 19:21] LABS: Urine Bacteria NONE SEEN /hpf (None Seen); Urine Blood 1+ /uL (Negative); Urine Specific Gravity 1.013 (1.001-1.035); Urine WBC 3 /hpf (0 - 3)
[2022-09-12 22:00] VITALS: BP 117/85
[2022-09-12] MEDS: ATORVASTATIN 20 MG TAB PO SCH (22:13)
[2022-09-12 22:29] VITALS: BP 117/85
[2022-09-12] MEDS ORDERED: EMPA1TAB PO (22:40)
[2022-09-12] MEDS ORDERED: TEMAZEPAM 15 MG CAP PO ONE (23:15)
[2022-09-13 05:50] VITALS: BP 108/73
[2022-09-13] MEDS: FUROSEMIDE 40 MG/4 ML VIAL IV SCH ×2 (05:59→18:27)
[2022-09-13 06:08] LABS: Basophils # (auto) 0.1 10 ^3/uL (0-0.2); Basophils % (auto) 1.7 % (0.0-2.0); Eosinophils # (auto) 0.2 10 ^3/uL (0-0.8); Eosinophils % (auto) 4.7 % (0.0-7.0); Hemoglobin 13.3 g/dL (13.5-17.5); Lymphocytes # (auto) 1.5 10 ^3/uL (0.4-5.4); Lymphocytes % (auto) 37.3 % (10.0-50.0); Mean Corpuscular Hemoglobin 27.5 pg (28.0-32.0); Mean Corpuscular Hgb Conc. 34.1 g/dL (32.0-36.0); Mean Corpuscular Volume 80.7 fL (80.0-100.0); Monocytes # (auto) 0.4 10 ^3/uL (0-1.3); Monocytes % (auto) 9.7 % (0.0-12.0); Neutrophils # (auto) 1.9 10 ^3/uL (1.6-8.6); Neutrophils % (auto) 46.6 % (37.0-80.0); Nucleated Red Blood Cells % 0.1 %; Red Blood Cells 4.83 10^6/uL (4.5-5.90); Red Cell Distribution Width 15.4 % (11.8-14.3)
[2022-09-13 06:18] LABS: BUN/Creatinine Ratio 17.6; Calcium 7.6 mg/dL (8.5-10.1)
[2022-09-13 09:00] VITALS: BP 142/97
[2022-09-13] MEDS: PANTOPRAZOLE 40 MG TAB PO SCH (09:12)
[2022-09-13] MEDS: SACUBITRIL-VALSARTAN 24mg/26mg TAB PO SCH ×2 (09:12→23:19)
[2022-09-13] MEDS: CARVEDILOL 12.5 MG TAB PO SCH ×2 (09:13→23:19)
[2022-09-13] MEDS: AMIODARONE HCL 200 MG TAB PO SCH ×2 (09:13→23:18)
[2022-09-13] MEDS: APIXABAN 5 MG TAB PO SCH ×2 (09:13→23:19)
[2022-09-13 13:00] VITALS: BP 129/75
[2022-09-13 17:00] VITALS: BP 128/85
[2022-09-13 22:00] VITALS: BP 125/88
[2022-09-13] MEDS: ATORVASTATIN 20 MG TAB PO SCH (23:19)
[2022-09-14 05:25] LABS: Calcium 7.5 mg/dL (8.5-10.1); Potassium 4.1 mmol/L (3.5-5.1)
[2022-09-14 05:29] LABS: BUN/Creatinine Ratio 20.3; Magnesium 2.3 mg/dL (1.6-2.6)
[2022-09-14] MEDS: FUROSEMIDE 40 MG/4 ML VIAL IV SCH (07:06)
[2022-09-14 08:56] VITALS: BP 150/69
[2022-09-14] MEDS: SACUBITRIL-VALSARTAN 24mg/26mg TAB PO SCH (09:49)
[2022-09-14] MEDS: APIXABAN 5 MG TAB PO SCH (09:50)
[2022-09-14] MEDS: AMIODARONE HCL 200 MG TAB PO SCH (09:50)
[2022-09-14] MEDS: CARVEDILOL 12.5 MG TAB PO SCH (09:50)
[2022-09-14 12:22] VITALS: BP 150/95
[2022-09-14 13:11] VITALS: BP 121/88
== END 2022-09-14 14:57 | disposition home or self-care (01) | DRG 291 ==
LOC: ER 22:36 → TELE 09-12 04:23 → TELE-CENTR 09-12 21:40
PROVIDERS: ADMIT Nurse Practitioner; ATTEND Internal Medicine
DX: I13.0 Hypertensive heart and chronic kidney disease with heart failure and stage 1 through stage 4 chronic kidney disease, or unspecified chronic kidney disease (principal); I50.43 Acute on chronic combined systolic (congestive) and diastolic (congestive) heart failure; N04.9 Nephrotic syndrome with unspecified morphologic changes; N17.9 Acute kidney failure, unspecified; E78.5 Hyperlipidemia, unspecified; I48.91 Unspecified atrial fibrillation; N18.32 Chronic kidney disease, stage 3b; Z20.822 Contact with and (suspected) exposure to COVID-19; E66.01 Morbid (severe) obesity due to excess calories; Z68.34 Body mass index [BMI] 34.0-34.9, adult; Z88.5 Allergy status to narcotic agent; Z79.899 Other long term (current) drug therapy; Z86.718 Personal history of other venous thrombosis and embolism; Z87.441 Personal history of nephrotic syndrome; Z87.891 Personal history of nicotine dependence; Z95.2 Presence of prosthetic heart valve
CPT/HCPCS: 36415; 71045; 80048; 80053; 81001; 83735; 83880; 84443; 84484; 85025; 87426; 93925; 93970; 96374; 96376; 99291; G0378

== ENCOUNTER 2022-10-26 21:21 | Inpatient (IN) | payer BC, OTHER ==
[~2022-10-26] VITALS: Ht 195.6 cm; Wt 134.0 kg
[2022-10-26 22:38] LABS: Basophils # (auto) 0.1 10 ^3/uL (0-0.2); Basophils % (auto) 2.1 % (0.0-2.0); Eosinophils # (auto) 0.2 10 ^3/uL (0-0.8); Eosinophils % (auto) 4.5 % (0.0-7.0); Hematocrit 38.7 % (41.0-53.0); Hemoglobin 12.9 g/dL (13.5-17.5); Lymphocytes # (auto) 1.2 10 ^3/uL (0.4-5.4); Lymphocytes % (auto) 28.8 % (10.0-50.0); Mean Corpuscular Hemoglobin 27.1 pg (28.0-32.0); Mean Corpuscular Hgb Conc. 33.2 g/dL (32.0-36.0); Mean Corpuscular Volume 81.6 fL (80.0-100.0); Monocytes # (auto) 0.3 10 ^3/uL (0-1.3); Monocytes % (auto) 8.3 % (0.0-12.0); Neutrophils # (auto) 2.4 10 ^3/uL (1.6-8.6); Neutrophils % (auto) 56.3 % (37.0-80.0); Nucleated Red Blood Cells % 0.2 %; Red Blood Cells 4.75 10^6/uL (4.5-5.90); Red Cell Distribution Width 17.2 % (11.8-14.3); White Blood Cell 4.2 10^3/uL (4.4-10.8)
[2022-10-26 22:57] LABS: BUN/Creatinine Ratio 8.8; Calcium 7.6 mg/dL (8.5-10.1); Magnesium 2.2 mg/dL (1.6-2.6)
[2022-10-26 22:59] LABS: Bilirubin, Total 0.8 mg/dL (0.2-1.0); Total Protein 4.9 g/dL (6.4-8.2)
[2022-10-26] MEDS ORDERED: SODIUM CHLORIDE 0.9% 1,000 ML IV ONE (23:30)
[2022-10-26] MEDS ORDERED: FUROSEMIDE 100 MG/10ML VIAL IV ONE (23:30)
[2022-10-26] MEDS ORDERED: ASPirin-EC 81 mg tab PO ONE (23:30)
[2022-10-26] MEDS ORDERED: MAGNESIUM SULFATE 1GM/100ML 100 ML IV ONE (23:45)
[2022-10-27] MEDS ORDERED: NITROGLYCERIN 0.4 MG SL TAB SL PRN (00:15)
[2022-10-27] MEDS ORDERED: HYDROcodone-ACET 5/325MG TAB PO PRN (00:15)
[2022-10-27] MEDS ORDERED: DOCUSATE SOD 100 MG CAP PO PRN (00:15)
[2022-10-27] MEDS ORDERED: ACETAMINOPHEN 325 MG TAB PO PRN (00:15)
[2022-10-27] MEDS ORDERED: ONDANSETRON HCL 4 MG/2 ML VIAL IV PRN (00:15)
[2022-10-27] MEDS ORDERED: MORPHINE SULFATE INJ 2 MG/ml SYRG IV PRN (00:15)
[2022-10-27] MEDS ORDERED: guaiFENesin-DM 100/10mg/5ml SYR PO ONE (04:15)
[2022-10-27] MEDS: SODIUM CHLOR 0.9% PF (SALINE LOCK) 10ML VIAL/SYR IV SCH ×2 (06:20→14:20)
[2022-10-27 08:48] LABS: Basophils # (auto) 0.1 10 ^3/uL (0-0.2); Basophils % (auto) 1.6 % (0.0-2.0); Eosinophils # (auto) 0.2 10 ^3/uL (0-0.8); Eosinophils % (auto) 4.7 % (0.0-7.0); Hematocrit 38.5 % (41.0-53.0); Hemoglobin 13.2 g/dL (13.5-17.5); Lymphocytes % (auto) 26.1 % (10.0-50.0); Mean Corpuscular Hemoglobin 27.5 pg (28.0-32.0); Mean Corpuscular Hgb Conc. 34.2 g/dL (32.0-36.0); Mean Corpuscular Volume 80.3 fL (80.0-100.0); Monocytes # (auto) 0.3 10 ^3/uL (0-1.3); Monocytes % (auto) 8.6 % (0.0-12.0); Neutrophils # (auto) 2.3 10 ^3/uL (1.6-8.6); Nucleated Red Blood Cells % 0.6 %; Red Cell Distribution Width 16.5 % (11.8-14.3); White Blood Cell 3.9 10^3/uL (4.4-10.8)
[2022-10-27 09:12] LABS: Albumin 2.1 g/dL (3.4-5.0); Calcium 7.9 mg/dL (8.5-10.1); Potassium 3.5 mmol/L (3.5-5.1)
[2022-10-27 09:17] LABS: BUN/Creatinine Ratio 8.9; Bilirubin, Total 1.2 mg/dL (0.2-1.0); Total Protein 4.8 g/dL (6.4-8.2)
[2022-10-27] MEDS ORDERED: ASPirin 81 mg TAB PO SCH (10:00)
[2022-10-27] MEDS ORDERED: FUROSEMIDE 40 MG/4 ML VIAL IV SCH (10:00)
[2022-10-27] MEDS: MULTIPLE VITAMIN TAB PO SCH (10:15)
[2022-10-27] MEDS: APIXABAN 5 MG TAB PO SCH (10:15)
[2022-10-27] MEDS: CARVEDILOL 12.5 MG TAB PO SCH (10:15)
[2022-10-27] MEDS: ASCORBIC ACID 500 MG TAB PO SCH (10:15)
[2022-10-27] MEDS: ZINC SULFATE 220mg CAP or TAB PO SCH (10:16)
[2022-10-27] MEDS ORDERED: AZITHROMYCIN 500MG/ 250ML 250 ML IV ONE (13:45)
[2022-10-27] MEDS ORDERED: cefTRIAXone 1GM/50ML D5W 50 ML IV ONE (13:45)
[2022-10-27] MEDS: ALBUTEROL SULF 2.5 MG/0.5ML(0.5%) NEB SOLN NEB SCH ×3 (14:29→22:01)
[2022-10-27 15:35] VITALS: BP 134/77
[2022-10-27] MEDS ORDERED: FUROSEMIDE 40 MG/4 ML VIAL IV ONE (15:45)
[2022-10-27] MEDS: DOXYCYCLINE 100MG/250ML 250 ML IV SCH (16:51)
[2022-10-28] MEDS: ASCORBIC ACID 500 MG TAB PO SCH ×3 (00:12→22:26)
[2022-10-28] MEDS: MELATONIN 5 MG TAB PO PRN ×2 (00:13→22:35)
[2022-10-28] MEDS: CARVEDILOL 12.5 MG TAB PO SCH ×3 (00:13→22:27)
[2022-10-28] MEDS: APIXABAN 5 MG TAB PO SCH ×3 (00:13→22:27)
[2022-10-28] MEDS: SODIUM CHLOR 0.9% PF (SALINE LOCK) 10ML VIAL/SYR IV SCH ×4 (00:17→22:30)
[2022-10-28] MEDS: ALBUTEROL SULF 2.5 MG/0.5ML(0.5%) NEB SOLN NEB SCH ×6 (02:00→21:38)
[2022-10-28] MEDS: DOXYCYCLINE 100MG/250ML 250 ML IV SCH ×2 (03:31→14:44)
[2022-10-28 05:00] VITALS: BP 120/89
[2022-10-28 07:00] LABS: Basophils # (auto) 0 10 ^3/uL (0-0.2); Basophils % (auto) 1.1 % (0.0-2.0); Eosinophils # (auto) 0.2 10 ^3/uL (0-0.8); Eosinophils % (auto) 4.2 % (0.0-7.0); Hematocrit 35.3 % (41.0-53.0); Lymphocytes # (auto) 1.2 10 ^3/uL (0.4-5.4); Lymphocytes % (auto) 29.9 % (10.0-50.0); Mean Corpuscular Hemoglobin 27.5 pg (28.0-32.0); Mean Corpuscular Volume 80.9 fL (80.0-100.0); Monocytes # (auto) 0.3 10 ^3/uL (0-1.3); Monocytes % (auto) 8.4 % (0.0-12.0); Neutrophils # (auto) 2.2 10 ^3/uL (1.6-8.6); Neutrophils % (auto) 56.4 % (37.0-80.0); Nucleated Red Blood Cells % 0.2 %; Red Blood Cells 4.37 10^6/uL (4.5-5.90); Red Cell Distribution Width 16.5 % (11.8-14.3); White Blood Cell 3.9 10^3/uL (4.4-10.8)
[2022-10-28 07:27] LABS: Potassium 3.7 mmol/L (3.5-5.1)
[2022-10-28 08:07] LABS: Albumin 1.7 g/dL (3.4-5.0); BUN/Creatinine Ratio 9.5; Bilirubin, Total 0.6 mg/dL (0.2-1.0); Calcium 7.5 mg/dL (8.5-10.1); Total Protein 4.6 g/dL (6.4-8.2)
[2022-10-28 09:00] VITALS: BP 131/101
[2022-10-28] MEDS ORDERED: cefTRIAXone 1GM/50ML D5W 50 ML IV SCH (09:00)
[2022-10-28] MEDS ORDERED: AZITHROMYCIN 500MG/ 250ML 250 ML IV SCH (10:00)
[2022-10-28] MEDS: ZINC SULFATE 220mg CAP or TAB PO SCH (10:03)
[2022-10-28] MEDS: FUROSEMIDE 40 MG/4 ML VIAL IV SCH ×3 (10:04→22:27)
[2022-10-28] MEDS: MULTIPLE VITAMIN TAB PO SCH (10:04)
[2022-10-28] MEDS ORDERED: diphenhdrAMINE HCL 50 MG/1 ML VL ONE (11:58)
[2022-10-28] MEDS ORDERED: diphenhdrAMINE HCL 50 MG/1 ML VL IV ONE (12:00)
[2022-10-28 13:00] VITALS: BP 111/82
[2022-10-28 17:00] VITALS: BP 129/90
[2022-10-28] MEDS ORDERED: ALBUTEROL MEDNEB 2.5 mg/3ml NEB ONE ×2 (18:00→21:35)
[2022-10-28 22:00] VITALS: BP 116/83
[2022-10-29] MEDS ORDERED: LEVALBUTEROL HCL 1.25 MG/3 ML NEB NEB SCH (02:00)
[2022-10-29] MEDS: DOXYCYCLINE 100MG/250ML 250 ML IV SCH ×2 (03:52→16:22)
[2022-10-29 04:58] VITALS: BP 139/88
[2022-10-29 05:22] LABS: Basophils # (auto) 0 10 ^3/uL (0-0.2); Basophils % (auto) 1.2 % (0.0-2.0); Eosinophils # (auto) 0.2 10 ^3/uL (0-0.8); Eosinophils % (auto) 5.5 % (0.0-7.0); Hematocrit 35.3 % (41.0-53.0); Hemoglobin 12.1 g/dL (13.5-17.5); Lymphocytes # (auto) 1.3 10 ^3/uL (0.4-5.4); Lymphocytes % (auto) 35.3 % (10.0-50.0); Mean Corpuscular Hemoglobin 27.5 pg (28.0-32.0); Mean Corpuscular Hgb Conc. 34.4 g/dL (32.0-36.0); Mean Corpuscular Volume 79.8 fL (80.0-100.0); Monocytes # (auto) 0.3 10 ^3/uL (0-1.3); Monocytes % (auto) 7.5 % (0.0-12.0); Neutrophils # (auto) 1.8 10 ^3/uL (1.6-8.6); Neutrophils % (auto) 50.5 % (37.0-80.0); Nucleated Red Blood Cells % 0.3 %; Red Blood Cells 4.42 10^6/uL (4.5-5.90); Red Cell Distribution Width 17.2 % (11.8-14.3); White Blood Cell 3.6 10^3/uL (4.4-10.8)
[2022-10-29] MEDS: SODIUM CHLOR 0.9% PF (SALINE LOCK) 10ML VIAL/SYR IV SCH ×3 (05:36→22:00)
[2022-10-29 05:40] LABS: Calcium 7.3 mg/dL (8.5-10.1); Potassium 3.7 mmol/L (3.5-5.1)
[2022-10-29 05:42] LABS: BUN/Creatinine Ratio 10.5; Phosphorus 4.1 mg/dL (2.5-4.90); Uric Acid 7.4 mg/dL (3.5-7.2)
[2022-10-29 06:33] LABS: Urine Blood Negative /uL (Negative); Urine Specific Gravity 1.015 (1.001-1.035)
[2022-10-29 06:38] LABS: Protein, Urine 179.6 mg/dL (0.0-11.9)
[2022-10-29] MEDS: LEVALBUTEROL HCL 1.25 MG/3 ML NEB NEB SCH ×3 (06:53→18:30)
[2022-10-29 09:00] VITALS: BP 131/88
[2022-10-29] MEDS: FUROSEMIDE 40 MG/4 ML VIAL IV SCH ×2 (09:02→21:07)
[2022-10-29] MEDS: ZINC SULFATE 220mg CAP or TAB PO SCH (09:03)
[2022-10-29] MEDS: APIXABAN 5 MG TAB PO SCH ×2 (09:04→21:07)
[2022-10-29] MEDS: CARVEDILOL 12.5 MG TAB PO SCH ×2 (09:04→21:07)
[2022-10-29] MEDS: ASCORBIC ACID 500 MG TAB PO SCH ×2 (09:04→21:07)
[2022-10-29] MEDS: MULTIPLE VITAMIN TAB PO SCH (09:04)
[2022-10-29] MEDS ORDERED: diphenhdrAMINE HCL 50 MG/1 ML VL IV ONE (11:00)
[2022-10-29] MEDS ORDERED: guaiFENesin-DM 100/10mg/5ml SYR PO PRN (11:00)
[2022-10-29 13:00] VITALS: BP 122/79
[2022-10-29 17:00] VITALS: BP 127/85
[2022-10-29 19:07] LABS: Hepatitis C Antibody Negative (Negative)
[2022-10-29] MEDS: DOXYCYCLINE 100 MG TAB/CAP PO SCH (21:07)
[2022-10-29 22:00] VITALS: BP 128/88
[2022-10-30] MEDS: LEVALBUTEROL HCL 1.25 MG/3 ML NEB NEB SCH ×2 (00:17→07:00)
[2022-10-30 04:40] VITALS: BP 124/96
[2022-10-30] MEDS: SODIUM CHLOR 0.9% PF (SALINE LOCK) 10ML VIAL/SYR IV SCH (06:58)
[2022-10-30 09:00] VITALS: BP 135/95
[2022-10-30] MEDS: ZINC SULFATE 220mg CAP or TAB PO SCH (09:22)
[2022-10-30] MEDS: FUROSEMIDE 40 MG/4 ML VIAL IV SCH (09:22)
[2022-10-30] MEDS: MULTIPLE VITAMIN TAB PO SCH (09:23)
[2022-10-30] MEDS: DOXYCYCLINE 100 MG TAB/CAP PO SCH (09:23)
[2022-10-30] MEDS: CARVEDILOL 12.5 MG TAB PO SCH (09:23)
[2022-10-30] MEDS: APIXABAN 5 MG TAB PO SCH (09:23)
[2022-10-30] MEDS: ASCORBIC ACID 500 MG TAB PO SCH (09:23)
[2022-10-30] MEDS ORDERED: DAPA1TAB4 PO (09:49)
[2022-10-30] MEDS ORDERED: DOXY-340 PO (10:00)
[2022-10-30] MEDS ORDERED: diphenhdrAMINE HCL 50 MG/1 ML VL IV ONE (10:45)
== END 2022-10-30 11:35 | disposition home or self-care (01) | DRG 280 ==
LOC: ER 21:22 → TELE 10-27 00:13 → TELE-CENTR 10-28 00:57
PROVIDERS: ADMIT Nurse Practitioner Family; ATTEND Family Medicine
DX: I21.4 Non-ST elevation (NSTEMI) myocardial infarction (principal); I50.23 Acute on chronic systolic (congestive) heart failure; J18.9 Pneumonia, unspecified organism; N17.0 Acute kidney failure with tubular necrosis; E44.0 Moderate protein-calorie malnutrition; I13.0 Hypertensive heart and chronic kidney disease with heart failure and stage 1 through stage 4 chronic kidney disease, or unspecified chronic kidney disease; Z20.822 Contact with and (suspected) exposure to COVID-19; E78.5 Hyperlipidemia, unspecified; E86.0 Dehydration; E88.09 Other disorders of plasma-protein metabolism, not elsewhere classified; E78.00 Pure hypercholesterolemia, unspecified; I25.5 Ischemic cardiomyopathy; E66.9 Obesity, unspecified; I34.89 Other nonrheumatic mitral valve disorders; I48.91 Unspecified atrial fibrillation; N18.32 Chronic kidney disease, stage 3b; R09.02 Hypoxemia; Z88.5 Allergy status to narcotic agent; Z68.35 Body mass index [BMI] 35.0-35.9, adult; I25.2 Old myocardial infarction; Z79.01 Long term (current) use of anticoagulants; Z82.49 Family history of ischemic heart disease and other diseases of the circulatory system; Z95.3 Presence of xenogenic heart valve
CPT/HCPCS: 36415; 71046; 80048; 80053; 81001; 82570; 83735; 83880; 84100; 84156; 84300; 84443; 84484; 84550; 85025; 86803; 87340; 87426; 93005; 93306; 94640; 96365; 96375; G0378; J0696; J3490

== ENCOUNTER 2022-11-09 19:41 | Inpatient (IN) | payer BC, OTHER ==
[~2022-11-09] VITALS: Ht 195.6 cm; Wt 131.6 kg
[~2022-11-09 19:41] MED LIST changes: +DAPA1TAB4 PO; +DOXY-340 PO
[2022-11-09] MEDS ORDERED: FUROSEMIDE 40 MG/4 ML VIAL IV ONE (22:15)
[2022-11-09 22:35] LABS: Basophils # (auto) 0.1 10 ^3/uL (0-0.2); Basophils % (auto) 1.5 % (0.0-2.0); Eosinophils # (auto) 0.2 10 ^3/uL (0-0.8); Eosinophils % (auto) 4.3 % (0.0-7.0); Hematocrit 38.2 % (41.0-53.0); Lymphocytes # (auto) 1.2 10 ^3/uL (0.4-5.4); Lymphocytes % (auto) 28.9 % (10.0-50.0); Mean Corpuscular Hemoglobin 28.2 pg (28.0-32.0); Mean Corpuscular Volume 82.9 fL (80.0-100.0); Monocytes # (auto) 0.3 10 ^3/uL (0-1.3); Monocytes % (auto) 8.4 % (0.0-12.0); Neutrophils # (auto) 2.4 10 ^3/uL (1.6-8.6); Neutrophils % (auto) 56.9 % (37.0-80.0); Nucleated Red Blood Cells % 0.1 %; Red Blood Cells 4.61 10^6/uL (4.5-5.90); Red Cell Distribution Width 16.7 % (11.8-14.3); White Blood Cell 4.2 10^3/uL (4.4-10.8)
[2022-11-09 22:58] LABS: BUN/Creatinine Ratio 12.3; Calcium 7.7 mg/dL (8.5-10.1)
[2022-11-09 23:01] LABS: Bilirubin, Total 0.7 mg/dL (0.2-1.0); Total Protein 5.2 g/dL (6.4-8.2)
[2022-11-10] MEDS ORDERED: ALUM & MAG HYDROX-SIMETH LIQ(MAALOX) 30 ML PO ONE (05:15)
[2022-11-10] MEDS ORDERED: NITROGLYCERIN 0.4 MG SL TAB SL PRN (05:15)
[2022-11-10] MEDS ORDERED: ACETAMINOPHEN 325 MG TAB PO PRN (05:15)
[2022-11-10] MEDS ORDERED: ONDANSETRON HCL 4 MG/2 ML VIAL IV PRN (05:15)
[2022-11-10] MEDS ORDERED: LORazepam 0.5 MG TAB PO PRN (05:15)
[2022-11-10] MEDS ORDERED: MORPHINE SULFATE 4 MG/ML SYR/VIAL IV PRN (05:15)
[2022-11-10 07:04] LABS: Basophils # (auto) 0 10 ^3/uL (0-0.2); Basophils % (auto) 0.2 % (0.0-2.0); Eosinophils # (auto) 0.2 10 ^3/uL (0-0.8); Eosinophils % (auto) 4.6 % (0.0-7.0); Lymphocytes # (auto) 1.1 10 ^3/uL (0.4-5.4); Lymphocytes % (auto) 29.2 % (10.0-50.0); Mean Corpuscular Hemoglobin 29.1 pg (28.0-32.0); Mean Corpuscular Hgb Conc. 35.3 g/dL (32.0-36.0); Mean Corpuscular Volume 82.3 fL (80.0-100.0); Monocytes # (auto) 0.4 10 ^3/uL (0-1.3); Monocytes % (auto) 10.7 % (0.0-12.0); Neutrophils # (auto) 2.1 10 ^3/uL (1.6-8.6); Neutrophils % (auto) 55.3 % (37.0-80.0); Nucleated Red Blood Cells % 0.2 %; Red Blood Cells 4.14 10^6/uL (4.5-5.90); Red Cell Distribution Width 16.7 % (11.8-14.3); White Blood Cell 3.9 10^3/uL (4.4-10.8)
[2022-11-10 07:20] LABS: BUN/Creatinine Ratio 13.2; Calcium 7.6 mg/dL (8.5-10.1); Potassium 3.6 mmol/L (3.5-5.1)
[2022-11-10] MEDS ORDERED: POTASSIUM CHL 20 Meq TABLET PO ONE (09:45)
[2022-11-10 09:58] LABS: Urine Bacteria FEW /hpf (None Seen); Urine Blood 1+ /uL (Negative); Urine Hyaline Cast FEW /lpf (0 - 2); Urine Specific Gravity 1.015 (1.001-1.035); Urine WBC 3 /hpf (0 - 3)
[2022-11-10] MEDS ORDERED: FUROSEMIDE 40 MG/4 ML VIAL IV SCH (10:00)
[2022-11-10] MEDS ORDERED: CLOPIDOGREL BISULFATE 75 MG TAB PO SCH (10:00)
[2022-11-10] MEDS ORDERED: SACUBITRIL-VALSARTAN 24mg/26mg TAB PO SCH (10:00)
[2022-11-10] MEDS ORDERED: ASPirin 81 mg TAB PO SCH (10:00)
[2022-11-10] MEDS ORDERED: CARVEDILOL 3.125 MG TAB PO SCH (10:00)
[2022-11-10] MEDS: DOCUSATE SOD 100 MG CAP PO SCH (10:24)
[2022-11-10] MEDS: ENOXAPARIN SOD 100 MG/1 ML SYRINGE SC SCH ×2 (10:25→22:18)
[2022-11-10] MEDS: metOLazone 5 MG TAB PO SCH (10:25)
[2022-11-10] MEDS: CARVEDILOL 3.125 MG TAB PO SCH ×2 (10:25→22:14)
[2022-11-10] MEDS: AMIODARONE HCL 200 MG TAB PO SCH ×2 (10:31→22:15)
[2022-11-10 11:01] LABS: INR 1.13 (0.9-1.15); Partial Thromboplastin Time 36.7 sec (24.6-33.4)
[2022-11-10] MEDS ORDERED: LIDOCAINE 2% JELLY 11ml (GLYDO) UR ONE (12:15)
[2022-11-10 14:50] LABS: Creatinine, Urine 127 mg/dL (30.0-125.0); Sodium Urine 102 mmol/L (40-220)
[2022-11-10 15:06] LABS: Protein, Urine 406.7 mg/dL (0.0-11.9)
[2022-11-10] MEDS: BUMETANIDE 2.5mg/10ml (0.25 mg/ml) INJ IV SCH (18:07)
[2022-11-10 19:30] VITALS: BP 111/93
[2022-11-10 20:00] VITALS: BP 111/93
[2022-11-10 21:47] VITALS: BP 131/86
[2022-11-10] MEDS: ATORVASTATIN 20 MG TAB PO SCH (22:17)
[2022-11-11 05:00] VITALS: BP 123/78
[2022-11-11 05:52] LABS: Basophils # (auto) 0.1 10 ^3/uL (0-0.2); Basophils % (auto) 1.6 % (0.0-2.0); Eosinophils # (auto) 0.2 10 ^3/uL (0-0.8); Eosinophils % (auto) 4.9 % (0.0-7.0); Hematocrit 32.8 % (41.0-53.0); Hemoglobin 11.5 g/dL (13.5-17.5); Lymphocytes # (auto) 1.4 10 ^3/uL (0.4-5.4); Lymphocytes % (auto) 39.2 % (10.0-50.0); Mean Corpuscular Hemoglobin 29.2 pg (28.0-32.0); Mean Corpuscular Hgb Conc. 35.2 g/dL (32.0-36.0); Monocytes # (auto) 0.3 10 ^3/uL (0-1.3); Monocytes % (auto) 7.5 % (0.0-12.0); Neutrophils # (auto) 1.6 10 ^3/uL (1.6-8.6); Neutrophils % (auto) 46.8 % (37.0-80.0); Nucleated Red Blood Cells % 0.3 %; Red Blood Cells 3.95 10^6/uL (4.5-5.90); Red Cell Distribution Width 16.8 % (11.8-14.3); White Blood Cell 3.5 10^3/uL (4.4-10.8)
[2022-11-11 05:59] LABS: Calcium 7.9 mg/dL (8.5-10.1); Magnesium 2.2 mg/dL (1.6-2.6); Potassium 3.8 mmol/L (3.5-5.1)
[2022-11-11] MEDS: LEVOTHYROXINE SODIUM 25 MCG TAB PO SCH (06:00)
[2022-11-11] MEDS: BUMETANIDE 2.5mg/10ml (0.25 mg/ml) INJ IV SCH ×2 (06:14→17:30)
[2022-11-11] MEDS: CARVEDILOL 3.125 MG TAB PO SCH ×2 (08:24→22:00)
[2022-11-11] MEDS: DOCUSATE SOD 100 MG CAP PO SCH (08:24)
[2022-11-11] MEDS: ENOXAPARIN SOD 100 MG/1 ML SYRINGE SC SCH ×2 (08:25→22:00)
[2022-11-11] MEDS: metOLazone 5 MG TAB PO SCH (08:25)
[2022-11-11 09:00] VITALS: BP 124/88
[2022-11-11 13:00] VITALS: BP 126/93
[2022-11-11 20:00] VITALS: BP 121/80
[2022-11-11 22:00] VITALS: BP 121/80
[2022-11-11] MEDS: AMIODARONE HCL 200 MG TAB PO SCH (22:00)
[2022-11-11] MEDS: ATORVASTATIN 20 MG TAB PO SCH (22:00)
[2022-11-12 05:00] VITALS: BP 113/80
[2022-11-12] MEDS: LEVOTHYROXINE SODIUM 25 MCG TAB PO SCH (06:26)
[2022-11-12] MEDS: BUMETANIDE 2.5mg/10ml (0.25 mg/ml) INJ IV SCH ×2 (06:26→17:35)
[2022-11-12 07:36] LABS: BUN/Creatinine Ratio 13.5; Calcium 7.9 mg/dL (8.5-10.1); Magnesium 2.2 mg/dL (1.6-2.6); Potassium 3.7 mmol/L (3.5-5.1)
[2022-11-12 07:43] LABS: Basophils # (auto) 0 10 ^3/uL (0-0.2); Basophils % (auto) 1.4 % (0.0-2.0); Eosinophils # (auto) 0.2 10 ^3/uL (0-0.8); Eosinophils % (auto) 5.1 % (0.0-7.0); Hematocrit 34.7 % (41.0-53.0); Hemoglobin 12.4 g/dL (13.5-17.5); Lymphocytes # (auto) 1.3 10 ^3/uL (0.4-5.4); Lymphocytes % (auto) 36.9 % (10.0-50.0); Mean Corpuscular Hemoglobin 29.5 pg (28.0-32.0); Mean Corpuscular Hgb Conc. 35.7 g/dL (32.0-36.0); Mean Corpuscular Volume 82.6 fL (80.0-100.0); Monocytes # (auto) 0.3 10 ^3/uL (0-1.3); Monocytes % (auto) 7.5 % (0.0-12.0); Neutrophils # (auto) 1.7 10 ^3/uL (1.6-8.6); Neutrophils % (auto) 49.1 % (37.0-80.0); Nucleated Red Blood Cells % 0.3 %; Red Cell Distribution Width 16.9 % (11.8-14.3); White Blood Cell 3.4 10^3/uL (4.4-10.8)
[2022-11-12 09:00] VITALS: BP 135/99
[2022-11-12] MEDS: DOCUSATE SOD 100 MG CAP PO SCH (09:23)
[2022-11-12] MEDS: POTASSIUM CHL 20 Meq TABLET PO SCH (09:24)
[2022-11-12] MEDS: CARVEDILOL 3.125 MG TAB PO SCH ×2 (09:25→21:41)
[2022-11-12] MEDS: ENOXAPARIN SOD 100 MG/1 ML SYRINGE SC SCH ×2 (09:25→21:39)
[2022-11-12] MEDS: metOLazone 5 MG TAB PO SCH (10:21)
[2022-11-12 13:00] VITALS: BP 121/92
[2022-11-12 20:00] VITALS: BP 118/80
[2022-11-12] MEDS: AMIODARONE HCL 200 MG TAB PO SCH (21:39)
[2022-11-12] MEDS: ZOLPIDEM TARTRATE 5 MG TAB PO PRN (21:42)
[2022-11-12] MEDS: ATORVASTATIN 20 MG TAB PO SCH (21:42)
[2022-11-12 22:00] VITALS: BP 118/80
[2022-11-13 05:00] VITALS: BP 125/79
[2022-11-13] MEDS: BUMETANIDE 2.5mg/10ml (0.25 mg/ml) INJ IV SCH ×2 (06:09→17:59)
[2022-11-13] MEDS: LEVOTHYROXINE SODIUM 25 MCG TAB PO SCH (06:09)
[2022-11-13 06:42] LABS: Albumin 1.8 g/dL (3.4-5.0); Calcium 7.7 mg/dL (8.5-10.1); Magnesium 2.2 mg/dL (1.6-2.6); Potassium 3.7 mmol/L (3.5-5.1)
[2022-11-13 06:45] LABS: BUN/Creatinine Ratio 13.2
[2022-11-13 06:48] LABS: Bilirubin, Total 0.5 mg/dL (0.2-1.0); Total Protein 5.2 g/dL (6.4-8.2)
[2022-11-13 09:00] VITALS: BP 128/91
[2022-11-13] MEDS: metOLazone 5 MG TAB PO SCH (09:27)
[2022-11-13] MEDS: POTASSIUM CHL 20 Meq TABLET PO SCH (09:28)
[2022-11-13] MEDS: DOCUSATE SOD 100 MG CAP PO SCH (09:29)
[2022-11-13] MEDS: APIXABAN 5 MG TAB PO SCH ×2 (09:30→21:40)
[2022-11-13] MEDS: CARVEDILOL 3.125 MG TAB PO SCH ×2 (09:30→21:40)
[2022-11-13] MEDS ORDERED: guaiFENesin 200 MG/10 ML UD PO PRN (11:30)
[2022-11-13 17:25] VITALS: BP 104/75
[2022-11-13 20:00] VITALS: BP 125/84
[2022-11-13] MEDS: ATORVASTATIN 20 MG TAB PO SCH (21:39)
[2022-11-13] MEDS: ZOLPIDEM TARTRATE 5 MG TAB PO PRN (21:40)
[2022-11-13] MEDS: AMIODARONE HCL 200 MG TAB PO SCH (21:40)
[2022-11-13 22:00] VITALS: BP 125/84
[2022-11-14 05:00] VITALS: BP 113/89
[2022-11-14] MEDS: BUMETANIDE 2.5mg/10ml (0.25 mg/ml) INJ IV SCH (06:19)
[2022-11-14 06:32] LABS: BUN/Creatinine Ratio 14.2; Calcium 7.9 mg/dL (8.5-10.1); Magnesium 2.1 mg/dL (1.6-2.6)
[2022-11-14] MEDS: LEVOTHYROXINE SODIUM 25 MCG TAB PO SCH (06:36)
[2022-11-14 08:00] VITALS: BP 126/96
[2022-11-14] MEDS ORDERED: ATOR80TA PO (08:12)
[2022-11-14] MEDS ORDERED: CAR125T PO (08:12)
[2022-11-14] MEDS ORDERED: APIX5TAB PO (08:12)
[2022-11-14] MEDS ORDERED: LEV25T PO (08:12)
[2022-11-14] MEDS ORDERED: METO5TAB5 PO (08:12)
[2022-11-14] MEDS ORDERED: AMIO200T33 PO (08:12)
[2022-11-14] MEDS ORDERED: BUME1TAB25 PO (08:12)
[2022-11-14] MEDS ORDERED: ERGO1CAP23 PO (08:12)
[2022-11-14] MEDS ORDERED: POTA-220 PO (08:12)
[2022-11-14 09:00] VITALS: BP_SYST 126; BP_SYST 129; BP_DIAS 92; BP_DIAS 96
[2022-11-14] MEDS: POTASSIUM CHL 20 Meq TABLET PO SCH (09:37)
[2022-11-14] MEDS: APIXABAN 5 MG TAB PO SCH (09:37)
[2022-11-14] MEDS: DOCUSATE SOD 100 MG CAP PO SCH (09:37)
[2022-11-14] MEDS: metOLazone 5 MG TAB PO SCH (09:38)
[2022-11-14] MEDS: CARVEDILOL 3.125 MG TAB PO SCH (09:39)
[2022-11-14 10:53] VITALS: BP 126/96
== END 2022-11-14 11:53 | disposition home or self-care (01) | DRG 280 ==
LOC: ER 19:41 → TELE 11-10 05:15 → TELE-CENTR 11-10 17:56
PROVIDERS: ADMIT Hospitalist; ATTEND Internal Medicine
DX: I13.0 Hypertensive heart and chronic kidney disease with heart failure and stage 1 through stage 4 chronic kidney disease, or unspecified chronic kidney disease (principal); I50.23 Acute on chronic systolic (congestive) heart failure; I21.A1 Myocardial infarction type 2; N17.0 Acute kidney failure with tubular necrosis; Z20.822 Contact with and (suspected) exposure to COVID-19; I42.8 Other cardiomyopathies; I34.89 Other nonrheumatic mitral valve disorders; D63.1 Anemia in chronic kidney disease; E03.9 Hypothyroidism, unspecified; E66.01 Morbid (severe) obesity due to excess calories; E78.5 Hyperlipidemia, unspecified; I48.91 Unspecified atrial fibrillation; N18.32 Chronic kidney disease, stage 3b; Z68.34 Body mass index [BMI] 34.0-34.9, adult
CPT/HCPCS: 36415; 71045; 80048; 80053; 81001; 82570; 82962; 83735; 83880; 83935; 84156; 84300; 84484; 85025; 85610; 85730; 87081; 87426; 87804; 93005; G0378

== ENCOUNTER 2023-03-25 15:05 | Inpatient (IN) | payer BC, OTHER ==
[~2023-03-25] VITALS: Ht 198.1 cm; Wt 119.4 kg
[~2023-03-25 15:05] MED LIST changes: +BUME1TAB25 PO; -CARV6.2551 PO; -CHOL200021 PO; -DAPA1TAB4 PO; -DOXY-340 PO; +ERGO1CAP23 PO; -FURO1TAB33 PO; -FURO40TA4 PO; +LEV25T PO; +METO5TAB5 PO; +POTA-220 PO; -SACU1TAB7 PO
[2023-03-25 15:33] LABS: Basophils # (auto) 0.1 10 ^3/uL (0-0.2); Basophils % (auto) 2.3 % (0.0-2.0); Eosinophils # (auto) 0.1 10 ^3/uL (0-0.8); Eosinophils % (auto) 2.9 % (0.0-7.0); Hematocrit 39.4 % (41.0-53.0); Hemoglobin 13.5 g/dL (13.5-17.5); Lymphocytes # (auto) 1.1 10 ^3/uL (0.4-5.4); Lymphocytes % (auto) 30.3 % (10.0-50.0); Mean Corpuscular Hemoglobin 29.5 pg (28.0-32.0); Mean Corpuscular Hgb Conc. 34.3 g/dL (32.0-36.0); Mean Corpuscular Volume 85.8 fL (80.0-100.0); Monocytes # (auto) 0.3 10 ^3/uL (0-1.3); Monocytes % (auto) 7.6 % (0.0-12.0); Neutrophils # (auto) 2.1 10 ^3/uL (1.6-8.6); Neutrophils % (auto) 56.9 % (37.0-80.0); Nucleated Red Blood Cells % 0.2 %; Red Blood Cells 4.59 10^6/uL (4.5-5.90); Red Cell Distribution Width 14.3 % (11.8-14.3); White Blood Cell 3.7 10^3/uL (4.4-10.8)
[2023-03-25 15:52] LABS: Albumin 2.8 g/dL (3.4-5.0); Calcium 7.8 mg/dL (8.5-10.1); Potassium 4.7 mmol/L (3.5-5.1)
[2023-03-25 15:57] LABS: BUN/Creatinine Ratio 15.5 (10.0-20.0); Bilirubin, Total 0.7 mg/dL (0.2-1.0); Total Protein 5.4 g/dL (6.4-8.2)
[2023-03-25] MEDS ORDERED: ENOXAPARIN SOD 100 MG/1 ML SYRINGE SC ONE (16:45)
[2023-03-25] MEDS ORDERED: LORazepam 2MG/ML-1ML VIAL IV ONE (16:45)
[2023-03-25] MEDS ORDERED: IOHEXOL 350 MG/ML 100ML IJ ONE (17:12)
[2023-03-25] MEDS ORDERED: FUROSEMIDE 40 MG/4 ML VIAL IV ONE (18:15)
[2023-03-25] MEDS ORDERED: NITROGLYCERIN 0.4 MG SL TAB SL PRN (18:15)
[2023-03-25] MEDS ORDERED: MORPHINE SULFATE INJ 2 MG/ml SYRG IV PRN (18:15)
[2023-03-25 18:42] LABS: Cholesterol 131 mg/dL (< 200)
[2023-03-25 18:45] LABS: HDL Cholesterol 35 mg/dL (40-59); LDL Cholesterol 93 mg/dL (< 100); Triglycerides 63 mg/dL (< 150)
[2023-03-25] MEDS ORDERED: DEXTROSE (50%) 50ML SYRG IV PRN (19:00)
[2023-03-25 20:34] LABS: Cholesterol 151 mg/dL (< 200); HDL Cholesterol 40 mg/dL (40-59); LDL Cholesterol 101 mg/dL (< 100); Triglycerides 57 mg/dL (< 150)
[2023-03-25 20:38] LABS: Urine Bacteria NONE SEEN /hpf (None Seen); Urine Blood 1+ /uL (Negative); Urine Specific Gravity 1.015 (1.001-1.035); Urine WBC 1 /hpf (0 - 3)
[2023-03-25] MEDS: InsuLIN REG 1unit/0.01ml Soln (100units/ml) SC SCH (22:00)
[2023-03-25] MEDS: ACCU-CHEK COMFORT CURVE STRIP VI SCH (22:00)
[2023-03-25] MEDS ORDERED: HEPARIN SODIUM (PORCINE) 5000 UNITS/ML 1ML VIAL SC SCH (22:00)
[2023-03-25] MEDS: AMIODARONE HCL 200 MG TAB PO SCH (22:56)
[2023-03-25] MEDS: CARVEDILOL 12.5 MG TAB PO SCH (23:00)
[2023-03-25] MEDS: APIXABAN 5 MG TAB PO SCH (23:00)
[2023-03-26 06:30] LABS: Basophils # (auto) 0.1 10 ^3/uL (0-0.2); Basophils % (auto) 2.6 % (0.0-2.0); Eosinophils # (auto) 0.2 10 ^3/uL (0-0.8); Eosinophils % (auto) 3.2 % (0.0-7.0); Hematocrit 38.7 % (41.0-53.0); Hemoglobin 13.6 g/dL (13.5-17.5); Lymphocytes % (auto) 21.1 % (10.0-50.0); Mean Corpuscular Hemoglobin 30.1 pg (28.0-32.0); Mean Corpuscular Hgb Conc. 35.2 g/dL (32.0-36.0); Mean Corpuscular Volume 85.6 fL (80.0-100.0); Monocytes # (auto) 0.4 10 ^3/uL (0-1.3); Monocytes % (auto) 7.8 % (0.0-12.0); Neutrophils # (auto) 3.1 10 ^3/uL (1.6-8.6); Neutrophils % (auto) 65.3 % (37.0-80.0); Nucleated Red Blood Cells % 0.1 %; Red Blood Cells 4.52 10^6/uL (4.5-5.90); White Blood Cell 4.8 10^3/uL (4.4-10.8)
[2023-03-26 06:51] LABS: Potassium 4.4 mmol/L (3.5-5.1)
[2023-03-26] MEDS: InsuLIN REG 1unit/0.01ml Soln (100units/ml) SC SCH ×4 (07:00→21:50)
[2023-03-26 07:06] LABS: Albumin 2.7 g/dL (3.4-5.0); BUN/Creatinine Ratio 15.9 (10.0-20.0); Bilirubin, Total 0.8 mg/dL (0.2-1.0); Calcium 8.2 mg/dL (8.5-10.1); Total Protein 5.7 g/dL (6.4-8.2)
[2023-03-26] MEDS: ACCU-CHEK COMFORT CURVE STRIP VI SCH ×4 (07:22→21:50)
[2023-03-26] MEDS: LEVOTHYROXINE SODIUM 50 MCG TAB PO SCH (07:23)
[2023-03-26] MEDS ORDERED: ERGOCALCIFEROL 50,000 UNIT(1.25MG) CAP PO SCH (10:00)
[2023-03-26] MEDS: FUROSEMIDE 20 MG/2 ML VIAL IV SCH (10:30)
[2023-03-26] MEDS: metOLazone 5 MG TAB PO SCH (10:31)
[2023-03-26] MEDS: AMIODARONE HCL 200 MG TAB PO SCH (10:31)
[2023-03-26] MEDS: APIXABAN 5 MG TAB PO SCH ×2 (10:31→21:54)
[2023-03-26] MEDS: ATORVASTATIN 20 MG TAB PO SCH (10:31)
[2023-03-26] MEDS: CARVEDILOL 12.5 MG TAB PO SCH ×4 (10:31→16:24)
[2023-03-26 11:37] LABS: Protein, Urine 51.9 mg/dL (0.0-11.9)
[2023-03-26 12:01] LABS: Sodium Urine 98 mmol/L (40-220)
[2023-03-26 12:06] LABS: Creatinine, Urine 101 mg/dL (30.0-125.0)
[2023-03-26 13:39] VITALS: BP 114/86
[2023-03-26] MEDS ORDERED: AMIODARONE HCL 150 MG in D5W 5% 100 ML IV ONE (18:45)
[2023-03-26] MEDS ORDERED: AMIODARONE 450mg/250ml AE 250 ML IV SCH (19:00)
[2023-03-26] MEDS: TEMAZEPAM 15 MG CAP PO PRN (21:54)
[2023-03-26 22:46] VITALS: BP 107/66
[2023-03-27] MEDS: AMIODARONE 450mg/250ml AE 250 ML IV SCH ×2 (01:19→17:17)
[2023-03-27 05:00] VITALS: BP 102/82
[2023-03-27] MEDS: LEVOTHYROXINE SODIUM 50 MCG TAB PO SCH (06:20)
[2023-03-27] MEDS: InsuLIN REG 1unit/0.01ml Soln (100units/ml) SC SCH (06:33)
[2023-03-27] MEDS: ACCU-CHEK COMFORT CURVE STRIP VI SCH (06:33)
[2023-03-27] MEDS: ATORVASTATIN 20 MG TAB PO SCH (11:01)
[2023-03-27] MEDS: metOLazone 5 MG TAB PO SCH (11:01)
[2023-03-27] MEDS: APIXABAN 5 MG TAB PO SCH ×2 (11:01→21:59)
[2023-03-27] MEDS: FUROSEMIDE 20 MG/2 ML VIAL IV SCH (11:02)
[2023-03-27 16:31] VITALS: BP 139/95
[2023-03-27] MEDS: CALCIUM ACETATE 667 MG CAP PO SCH (17:17)
[2023-03-27 20:00] VITALS: BP 112/83
[2023-03-27 22:00] VITALS: BP 112/83
[2023-03-27] MEDS: CARVEDILOL 12.5 MG TAB PO SCH (22:00)
[2023-03-27] MEDS: TEMAZEPAM 15 MG CAP PO PRN (22:04)
[2023-03-28] VITALS (7 sets, daily range): BP systolic 102–143; BP diastolic 60–97
[2023-03-28] MEDS: LEVOTHYROXINE SODIUM 50 MCG TAB PO SCH (06:30)
[2023-03-28] MEDS: AMIODARONE 450mg/250ml AE 250 ML IV SCH ×2 (07:10→21:23)
[2023-03-28] MEDS: ATORVASTATIN 20 MG TAB PO SCH (09:19)
[2023-03-28] MEDS: CALCIUM ACETATE 667 MG CAP PO SCH ×3 (09:20→17:43)
[2023-03-28] MEDS: CARVEDILOL 12.5 MG TAB PO SCH ×2 (09:20→21:30)
[2023-03-28] MEDS: APIXABAN 5 MG TAB PO SCH ×2 (09:20→21:23)
[2023-03-28] MEDS: metOLazone 5 MG TAB PO SCH (09:21)
[2023-03-28] MEDS: FUROSEMIDE 20 MG/2 ML VIAL IV SCH (09:21)
[2023-03-28] MEDS: TEMAZEPAM 15 MG CAP PO PRN (22:44)
[2023-03-29 05:00] VITALS: BP 104/67
[2023-03-29] MEDS: LEVOTHYROXINE SODIUM 50 MCG TAB PO SCH (06:16)
[2023-03-29 07:59] LABS: Potassium 4.2 mmol/L (3.5-5.1)
[2023-03-29 08:10] LABS: Albumin 2.8 g/dL (3.4-5.0); BUN/Creatinine Ratio 15.9 (10.0-20.0); Bilirubin, Total 0.8 mg/dL (0.2-1.0); Phosphorus 4.7 mg/dL (2.5-4.90); Total Protein 5.9 g/dL (6.4-8.2)
[2023-03-29] MEDS: ATORVASTATIN 20 MG TAB PO SCH (08:41)
[2023-03-29] MEDS: CALCIUM ACETATE 667 MG CAP PO SCH ×3 (08:42→18:08)
[2023-03-29] MEDS: APIXABAN 5 MG TAB PO SCH ×2 (08:42→22:50)
[2023-03-29] MEDS: metOLazone 5 MG TAB PO SCH (08:44)
[2023-03-29] MEDS: CARVEDILOL 12.5 MG TAB PO SCH ×2 (08:45→22:51)
[2023-03-29] MEDS: FUROSEMIDE 20 MG/2 ML VIAL IV SCH (08:45)
[2023-03-29 10:04] VITALS: BP 127/88
[2023-03-29] MEDS: AMIODARONE 450mg/250ml AE 250 ML IV SCH (12:54)
[2023-03-29 13:32] VITALS: BP 123/81
[2023-03-29 16:31] VITALS: BP 123/91
[2023-03-29 22:00] VITALS: BP 141/75
[2023-03-29] MEDS: TEMAZEPAM 15 MG CAP PO PRN (22:50)
[2023-03-30 05:00] VITALS: BP 107/70
[2023-03-30] MEDS: LEVOTHYROXINE SODIUM 50 MCG TAB PO SCH (06:32)
[2023-03-30] MEDS: AMIODARONE 450mg/250ml AE 250 ML IV SCH (07:11)
[2023-03-30] MEDS: CALCIUM ACETATE 667 MG CAP PO SCH ×3 (08:37→17:25)
[2023-03-30] MEDS: FUROSEMIDE 20 MG/2 ML VIAL IV SCH (08:37)
[2023-03-30] MEDS: CARVEDILOL 12.5 MG TAB PO SCH ×2 (08:38→21:45)
[2023-03-30] MEDS: ATORVASTATIN 20 MG TAB PO SCH (08:38)
[2023-03-30] MEDS: APIXABAN 5 MG TAB PO SCH ×2 (08:38→21:37)
[2023-03-30] MEDS: metOLazone 5 MG TAB PO SCH (08:57)
[2023-03-30 09:00] VITALS: BP 126/82
[2023-03-30 13:00] VITALS: BP 106/74
[2023-03-30] MEDS ORDERED: AMIODARONE HCL 200 MG TAB PO ONE (13:00)
[2023-03-30 17:15] VITALS: BP 120/87
[2023-03-30] MEDS: AMIODARONE HCL 200 MG TAB PO SCH (21:37)
[2023-03-30] MEDS: TEMAZEPAM 15 MG CAP PO PRN (21:37)
[2023-03-30 21:52] VITALS: BP 127/90
[2023-03-31 05:00] VITALS: BP 126/90
[2023-03-31 05:20] LABS: BUN/Creatinine Ratio 16.3 (10.0-20.0); Magnesium 2.6 mg/dL (1.6-2.6); Potassium 4.3 mmol/L (3.5-5.1)
[2023-03-31] MEDS: LEVOTHYROXINE SODIUM 50 MCG TAB PO SCH (06:27)
[2023-03-31] MEDS: CALCIUM ACETATE 667 MG CAP PO SCH (08:40)
[2023-03-31] MEDS: ATORVASTATIN 20 MG TAB PO SCH (08:40)
[2023-03-31] MEDS: APIXABAN 5 MG TAB PO SCH (08:41)
[2023-03-31] MEDS: AMIODARONE HCL 200 MG TAB PO SCH (08:41)
[2023-03-31] MEDS: CARVEDILOL 12.5 MG TAB PO SCH (08:41)
[2023-03-31] MEDS: FUROSEMIDE 20 MG/2 ML VIAL IV SCH (08:41)
[2023-03-31] MEDS: metOLazone 5 MG TAB PO SCH (08:42)
[2023-03-31 09:06] VITALS: BP 124/83
[2023-03-31] MEDS ORDERED: CARV25TA PO (10:24)
[2023-03-31 11:50] VITALS: BP 124/83
== END 2023-03-31 12:55 | disposition home or self-care (01) | DRG 194 ==
LOC: ER 15:05 → TELE 18:10 → TELE-WESTW 03-26 13:39
PROVIDERS: ADMIT Nurse Practitioner Family; ATTEND Internal Medicine Geriatric Medicine
DX: I13.0 Hypertensive heart and chronic kidney disease with heart failure and stage 1 through stage 4 chronic kidney disease, or unspecified chronic kidney disease (principal); N17.0 Acute kidney failure with tubular necrosis; E43 Unspecified severe protein-calorie malnutrition; I42.0 Dilated cardiomyopathy; I48.92 Unspecified atrial flutter; Z79.01 Long term (current) use of anticoagulants; I48.20 Chronic atrial fibrillation, unspecified; I50.43 Acute on chronic combined systolic (congestive) and diastolic (congestive) heart failure; E83.39 Other disorders of phosphorus metabolism; Z95.1 Presence of aortocoronary bypass graft; E66.01 Morbid (severe) obesity due to excess calories; E78.5 Hyperlipidemia, unspecified; N18.32 Chronic kidney disease, stage 3b; Z88.5 Allergy status to narcotic agent; Z88.8 Allergy status to other drugs, medicaments and biological substances; Z79.899 Other long term (current) drug therapy; Z79.2 Long term (current) use of antibiotics; Z68.30 Body mass index [BMI] 30.0-30.9, adult; Z82.49 Family history of ischemic heart disease and other diseases of the circulatory system
CPT/HCPCS: 36415; 71045; 71275; 76775; 80048; 80053; 80061; 81001; 82306; 82570; 82962; 83036; 83735; 83880; 83970; 84100; 84156; 84300; 84443; 84484; 85025; 85379; 93005; 93306; 96372; 96374; 96375; 96376; 99291; G0378; J1815; J7060

== ENCOUNTER 2023-10-10 19:03 | Inpatient (IN) | payer OTHER ==
[~2023-10-10] VITALS: Ht 195.6 cm; Wt 126.9 kg
[2023-10-10 19:03] VITALS: PULSE 75; RESP 16; O2SAT 97
[~2023-10-10 19:03] MED LIST changes: -CAR125T PO; +CARV25TA PO
[2023-10-10 19:30] VITALS: PULSE 92; RESP 32; O2SAT 98
[2023-10-10 19:33] LABS: Basophils # (auto) 0 10 ^3/uL (0-0.2); Basophils % (auto) 1.3 % (0.0-2.0); Eosinophils # (auto) 0.1 10 ^3/uL (0-0.8); Eosinophils % (auto) 2.9 % (0.0-7.0); Hematocrit 42.4 % (41.0-53.0); Hemoglobin 14.4 g/dL (13.5-17.5); Lymphocytes # (auto) 1.2 10 ^3/uL (0.4-5.4); Lymphocytes % (auto) 33.9 % (10.0-50.0); Mean Corpuscular Hemoglobin 28.9 pg (28.0-32.0); Mean Corpuscular Hgb Conc. 33.9 g/dL (32.0-36.0); Mean Corpuscular Volume 85.1 fL (80.0-100.0); Monocytes # (auto) 0.3 10 ^3/uL (0-1.3); Monocytes % (auto) 7.8 % (0.0-12.0); Neutrophils % (auto) 54.1 % (37.0-80.0); Nucleated Red Blood Cells % 0.2 %; Red Blood Cells 4.98 10^6/uL (4.5-5.90); Red Cell Distribution Width 15.2 % (11.8-14.3); White Blood Cell 3.6 10^3/uL (4.4-10.8)
[2023-10-10 19:46] LABS: INR 1.11 (0.9-1.15); Partial Thromboplastin Time 28.7 SEC (24.5-34.5); Prothrombin Time 11.6 sec (9.3-11.8)
[2023-10-10 19:48] LABS: Blood Alcohol 16.5 mg/dL (<10); Magnesium 2.3 mg/dL (1.6-2.6)
[2023-10-10 19:51] LABS: Acetaminophen < 2.0 UG/ML (10.0-20.0); Alanine Aminotransferase 38 U/L (7-40); Albumin 4.1 g/dL (3.2-4.8); Alkaline Phosphatase 118 U/L (46-116); Anion Gap 10 (5-15); Aspartate Aminotransferase 61 U/L (13-40); BUN/Creatinine Ratio 12.2 (10.0-20.0); Blood Urea Nitrogen 30 mg/dL (9-23); Calcium 8.6 mg/dL (8.7-10.4); Carbon Dioxide 21 mmol/L (20-30); Chloride 107 mmol/L (98-107); Glucose 145 mg/dL (74-106); Potassium 3.5 mmol/L (3.5-5.1); Sodium 138 mmol/L (136-145)
[2023-10-10 19:52] LABS: Bilirubin, Total 1.1 mg/dL (0.2-1.0); Total Protein 7.1 g/dL (5.7-8.2)
[2023-10-10 19:55] LABS: Free T3 2.65 pg/mL (2.3-4.2); Free T4 (Free Thyroxine) 1.39 ng/dL (0.89-1.76)
[2023-10-10 19:56] LABS: Salicylate < 3.0 mg/dL (2.8-20.0)
[2023-10-10] MEDS ORDERED: ASPirin-EC 325mg tab PO ONE (20:15)
[2023-10-10 20:39] LABS: Amphetamine Screen, Urine Neg (NEGATIVE); Benzodiazephine Screen, Urine Neg (NEGATIVE)
[2023-10-10 20:40] LABS: Barbiturate Scree,Urine Neg (NEGATIVE); Cannabinoid Screen, Urine Pos (NEGATIVE); Cocaine Screen, Urine Neg (NEGATIVE); Opiate Scree,Urine Neg (NEGATIVE); Phencyclidine Screen, Urine Neg (NEGATIVE)
[2023-10-10] MEDS ORDERED: CARVEDILOL 12.5 MG TAB PO ONE (20:45)
[2023-10-10] MEDS ORDERED: ONDANSETRON HCL 4 MG/2 ML VIAL IV PRN (21:45)
[2023-10-10] MEDS ORDERED: DOCUSATE SOD 100 MG CAP PO PRN (21:45)
[2023-10-10] MEDS ORDERED: ACETAMINOPHEN 325 MG TAB PO PRN (21:45)
[2023-10-10] MEDS: SODIUM CHLOR 0.9% PF (SALINE LOCK) 10ML VIAL/SYR IV SCH (22:51)
[2023-10-10] MEDS: AMIODARONE HCL 200 MG TAB PO SCH (22:51)
[2023-10-10] MEDS: ATORVASTATIN 20 MG TAB PO SCH (22:52)
[2023-10-10] MEDS: CARVEDILOL 12.5 MG TAB PO SCH (22:52)
[2023-10-10] MEDS: APIXABAN 5 MG TAB PO SCH (22:52)
[2023-10-11] MEDS ORDERED: NITROGLYCERIN 0.4 MG SL TAB SL PRN
[2023-10-11] MEDS: SODIUM CHLOR 0.9% PF (SALINE LOCK) 10ML VIAL/SYR IV SCH ×3 (06:03→21:29)
[2023-10-11] MEDS: LEVOTHYROXINE SODIUM 25 MCG TAB PO SCH (06:10)
[2023-10-11 06:11] LABS: Alanine Aminotransferase 29 U/L (7-40); Albumin 3.6 g/dL (3.2-4.8); Alkaline Phosphatase 93 U/L (46-116); Anion Gap 9 (5-15); Aspartate Aminotransferase 38 U/L (13-40); BUN/Creatinine Ratio 14.7 (10.0-20.0); Blood Urea Nitrogen 31 mg/dL (9-23); Calcium 8.5 mg/dL (8.5-10.1); Carbon Dioxide 24 mmol/L (20-30); Chloride 108 mmol/L (98-107); Glucose 95 mg/dL (74-106); Potassium 3.9 mmol/L (3.5-5.1); Sodium 141 mmol/L (136-145)
[2023-10-11 06:12] LABS: Bilirubin, Total 0.7 mg/dL (0.2-1.0); Total Protein 6.3 g/dL (5.7-8.2)
[2023-10-11 06:13] LABS: Basophils # (auto) 0 10 ^3/uL (0-0.2); Basophils % (auto) 1.2 % (0.0-2.0); Eosinophils # (auto) 0.1 10 ^3/uL (0-0.8); Eosinophils % (auto) 3.8 % (0.0-7.0); Hematocrit 40.1 % (41.0-53.0); Hemoglobin 13.7 g/dL (13.5-17.5); Lymphocytes # (auto) 0.9 10 ^3/uL (0.4-5.4); Lymphocytes % (auto) 26.1 % (10.0-50.0); Mean Corpuscular Hgb Conc. 34.2 g/dL (32.0-36.0); Mean Corpuscular Volume 84.7 fL (80.0-100.0); Monocytes # (auto) 0.3 10 ^3/uL (0-1.3); Monocytes % (auto) 8.1 % (0.0-12.0); Neutrophils % (auto) 60.8 % (37.0-80.0); Nucleated Red Blood Cells % 0.4 %; Red Blood Cells 4.74 10^6/uL (4.5-5.90); White Blood Cell 3.4 10^3/uL (4.4-10.8)
[2023-10-11] MEDS: BUMETANIDE 2.5mg/10ml (0.25 mg/ml) INJ IV SCH ×2 (06:13→18:00)
[2023-10-11] MEDS: APIXABAN 5 MG TAB PO SCH ×2 (09:33→21:25)
[2023-10-11] MEDS: CARVEDILOL 12.5 MG TAB PO SCH ×2 (09:34→21:26)
[2023-10-11] MEDS: AMIODARONE HCL 200 MG TAB PO SCH ×2 (09:35→21:26)
[2023-10-11 17:44] VITALS: BP 106/76; PULSE 62; RESP 18; TEMP 98.5
[2023-10-11 20:00] VITALS: PULSE 68
[2023-10-11] MEDS: ATORVASTATIN 20 MG TAB PO SCH (21:25)
[2023-10-11 21:52] VITALS: BP 119/78; PULSE 70; RESP 20; TEMP 98.7; O2SAT 96
[2023-10-11] MEDS ORDERED: MELATONIN 5 MG TAB PO ONE (22:30)
[2023-10-12] VITALS (7 sets, daily range): BP systolic 105–142; BP diastolic 63–90; PULSE 52–74; RESP 17–21; TEMP 97.5–98.1; O2SAT 93–99
[2023-10-12] MEDS: LEVOTHYROXINE SODIUM 25 MCG TAB PO SCH (05:47)
[2023-10-12] MEDS: SODIUM CHLOR 0.9% PF (SALINE LOCK) 10ML VIAL/SYR IV SCH ×3 (05:47→20:47)
[2023-10-12] MEDS: BUMETANIDE 2.5mg/10ml (0.25 mg/ml) INJ IV SCH ×2 (05:48→17:52)
[2023-10-12 06:27] LABS: Protein, Urine 164.7 mg/dL (0.0-11.9)
[2023-10-12 06:30] LABS: Creatinine, Urine 139.79 mg/dL (30.0-125.0)
[2023-10-12 06:38] LABS: Urine Bacteria NONE SEEN /hpf (None Seen); Urine Blood 3+ /uL (Negative); Urine Clarity Clear (Clear); Urine Color Yellow (Yellow); Urine Protein, UAD 2+ (Negative); Urine Specific Gravity 1.017 (1.001-1.035); Urine Urobilinogen Normal (Negative); Urine WBC 2 /hpf (0 - 3)
[2023-10-12 08:11] LABS: Chloride 106 mmol/L (98-107); Potassium 3.9 mmol/L (3.5-5.1); Sodium 138 mmol/L (136-145)
[2023-10-12 08:12] LABS: Anion Gap 7 (5-15); Calcium 8.8 mg/dL (8.5-10.1); Carbon Dioxide 25 mmol/L (20-30)
[2023-10-12 08:17] LABS: BUN/Creatinine Ratio 15.7 (10.0-20.0); Blood Urea Nitrogen 31 mg/dL (9-23); Glucose 105 mg/dL (74-106)
[2023-10-12 08:19] LABS: Phosphorus 3.7 mg/dL (2.4-5.1)
[2023-10-12] MEDS: APIXABAN 5 MG TAB PO SCH (09:43)
[2023-10-12] MEDS: CARVEDILOL 12.5 MG TAB PO SCH ×2 (09:44→20:44)
[2023-10-12] MEDS: AMIODARONE HCL 200 MG TAB PO SCH ×2 (09:44→20:44)
[2023-10-12 10:30] LABS: Basophils # (auto) 0 10 ^3/uL (0-0.2); Eosinophils # (auto) 0.2 10 ^3/uL (0-0.8); Eosinophils % (auto) 5.2 % (0.0-7.0); Hematocrit 42.1 % (41.0-53.0); Hemoglobin 14.3 g/dL (13.5-17.5); Lymphocytes # (auto) 0.9 10 ^3/uL (0.4-5.4); Lymphocytes % (auto) 29.1 % (10.0-50.0); Mean Corpuscular Hemoglobin 28.9 pg (28.0-32.0); Monocytes # (auto) 0.3 10 ^3/uL (0-1.3); Neutrophils # (auto) 1.8 10 ^3/uL (1.6-8.6); Neutrophils % (auto) 56.7 % (37.0-80.0); Nucleated Red Blood Cells % 0.5 %; Red Blood Cells 4.96 10^6/uL (4.5-5.90); Red Cell Distribution Width 14.6 % (11.8-14.3); White Blood Cell 3.1 10^3/uL (4.4-10.8)
[2023-10-12] MEDS: ATORVASTATIN 20 MG TAB PO SCH (20:44)
[2023-10-12] MEDS: ENOXAPARIN SOD 120 MG/0.8 ML SYRINGE SC SCH (20:45)
[2023-10-13 05:00] VITALS: BP 132/67; PULSE 64; RESP 18; TEMP 98.2; O2SAT 100
[2023-10-13] MEDS: LEVOTHYROXINE SODIUM 25 MCG TAB PO SCH (05:41)
[2023-10-13] MEDS: BUMETANIDE 2.5mg/10ml (0.25 mg/ml) INJ IV SCH ×2 (05:41→18:08)
[2023-10-13] MEDS: SODIUM CHLOR 0.9% PF (SALINE LOCK) 10ML VIAL/SYR IV SCH ×3 (05:41→22:33)
[2023-10-13 07:18] LABS: Anion Gap 11 (5-15); Carbon Dioxide 23 mmol/L (20-30); Chloride 106 mmol/L (98-107); Potassium 3.9 mmol/L (3.5-5.1); Sodium 140 mmol/L (136-145)
[2023-10-13 07:20] LABS: Calcium 8.8 mg/dL (8.5-10.1)
[2023-10-13 07:24] LABS: BUN/Creatinine Ratio 15.4 (10.0-20.0); Blood Urea Nitrogen 30 mg/dL (9-23); Glucose 81 mg/dL (74-106)
[2023-10-13 08:00] VITALS: BP 140/74; PULSE 116; PULSE 78; RESP 18; TEMP 98.6; O2SAT 100
[2023-10-13 08:43] LABS: Magnesium 2.1 mg/dL (1.6-2.6)
[2023-10-13] MEDS: AMIODARONE HCL 200 MG TAB PO SCH ×2 (09:28→22:31)
[2023-10-13] MEDS: CARVEDILOL 12.5 MG TAB PO SCH ×2 (09:30→22:31)
[2023-10-13] MEDS: ENOXAPARIN SOD 120 MG/0.8 ML SYRINGE SC SCH (10:00)
[2023-10-13 12:42] VITALS: BP 123/84; PULSE 63; RESP 16; TEMP 98.7; O2SAT 98
[2023-10-13 17:00] VITALS: BP 115/77; PULSE 62; RESP 18; TEMP 98.6; O2SAT 98
[2023-10-13 20:00] VITALS: PULSE 70; O2SAT 100
[2023-10-13 22:00] VITALS: BP 124/81; PULSE 68; RESP 16; TEMP 98; O2SAT 98
[2023-10-13] MEDS: HEPARIN SODIUM (PORCINE) 5000 UNITS/ML 1ML VIAL SC SCH (22:00)
[2023-10-13] MEDS: ATORVASTATIN 20 MG TAB PO SCH (22:31)
[2023-10-14] VITALS (10 sets, daily range): BP systolic 105–162; BP diastolic 72–108; PULSE 66–97; RESP 14–19; TEMP 97.5–98.3; O2SAT 95–100
[2023-10-14 06:27] LABS: Basophils # (auto) 0 10 ^3/uL (0-0.2); Eosinophils # (auto) 0.2 10 ^3/uL (0-0.8); Eosinophils % (auto) 4.9 % (0.0-7.0); Hematocrit 40.1 % (41.0-53.0); Hemoglobin 13.9 g/dL (13.5-17.5); Lymphocytes # (auto) 1.1 10 ^3/uL (0.4-5.4); Lymphocytes % (auto) 29.1 % (10.0-50.0); Mean Corpuscular Hgb Conc. 34.6 g/dL (32.0-36.0); Mean Corpuscular Volume 83.8 fL (80.0-100.0); Monocytes # (auto) 0.4 10 ^3/uL (0-1.3); Monocytes % (auto) 9.5 % (0.0-12.0); Neutrophils # (auto) 2.1 10 ^3/uL (1.6-8.6); Neutrophils % (auto) 55.5 % (37.0-80.0); Nucleated Red Blood Cells % 0.2 %; Red Blood Cells 4.78 10^6/uL (4.5-5.90); Red Cell Distribution Width 14.7 % (11.8-14.3); White Blood Cell 3.8 10^3/uL (4.4-10.8)
[2023-10-14] MEDS: LEVOTHYROXINE SODIUM 25 MCG TAB PO SCH (06:32)
[2023-10-14] MEDS: BUMETANIDE 2.5mg/10ml (0.25 mg/ml) INJ IV SCH (06:35)
[2023-10-14] MEDS: SODIUM CHLOR 0.9% PF (SALINE LOCK) 10ML VIAL/SYR IV SCH ×3 (06:37→22:25)
[2023-10-14 06:44] LABS: Alanine Aminotransferase 20 U/L (7-40); Albumin 3.7 g/dL (3.2-4.8); Alkaline Phosphatase 80 U/L (46-116); Anion Gap 6 (5-15); Aspartate Aminotransferase 21 U/L (13-40); BUN/Creatinine Ratio 16.9 (10.0-20.0); Blood Urea Nitrogen 38 mg/dL (9-23); Calcium 8.8 mg/dL (8.5-10.1); Carbon Dioxide 27 mmol/L (20-30); Chloride 107 mmol/L (98-107); Glucose 88 mg/dL (74-106); Potassium 4.1 mmol/L (3.5-5.1); Sodium 140 mmol/L (136-145)
[2023-10-14 06:45] LABS: Total Protein 6.3 g/dL (5.7-8.2)
[2023-10-14] MEDS: AMIODARONE HCL 200 MG TAB PO SCH ×2 (09:35→22:25)
[2023-10-14] MEDS: CARVEDILOL 12.5 MG TAB PO SCH ×2 (09:36→22:24)
[2023-10-14] MEDS: HEPARIN SODIUM (PORCINE) 5000 UNITS/ML 1ML VIAL SC SCH (09:36)
[2023-10-14] MEDS ORDERED: VANCOMYCIN 1GM/200ML 0 ML IV ONE (15:11)
[2023-10-14] MEDS ORDERED: IODIXANOL 320MG/ML 100ML BTL IV ONE (15:14)
[2023-10-14] MEDS ORDERED: ceFAZolin 1GM/50ML 50 ML IV ONE ×3 (15:16→15:53)
[2023-10-14] MEDS ORDERED: ceFAZolin 1GM VL ONE (15:21)
[2023-10-14] MEDS ORDERED: fentaNYL CITRATE 100 MCG/2 ML VL ONE (15:23)
[2023-10-14] MEDS ORDERED: MIDAZOLAM HCL 2MG/2ML 2ml VIAL (1mg/ml) ONE (15:24)
[2023-10-14] MEDS ORDERED: LIDOCAINE 2%HCL (LOCAL ANESTH.) INJ 20ML MDV ONE (15:24)
[2023-10-14] MEDS ORDERED: VANCOMYCIN HCL 1000 MG VL ONE (16:28)
[2023-10-14] MEDS ORDERED: GELATIN 1 SPONGE SIZE 50 TOP ONE (17:40)
[2023-10-14] MEDS ORDERED: DAPTOmycin 500 MG in SODIUM CHL 0.9% 50 ML IV SCH (20:00)
[2023-10-14] MEDS ORDERED: DOXYCYCLINE 100 MG TAB/CAP PO SCH (22:00)
[2023-10-14] MEDS: ATORVASTATIN 20 MG TAB PO SCH (22:20)
[2023-10-14] MEDS: DOXYCYCLINE 100 MG TAB/CAP PO SCH (22:21)
[2023-10-15 05:00] VITALS: BP 127/80; PULSE 71; RESP 19; TEMP 97.5; O2SAT 98
[2023-10-15] MEDS ORDERED: BUMETANIDE 2.5mg/10ml (0.25 mg/ml) INJ IV SCH (06:00)
[2023-10-15] MEDS: LEVOTHYROXINE SODIUM 25 MCG TAB PO SCH (06:22)
[2023-10-15] MEDS: SODIUM CHLOR 0.9% PF (SALINE LOCK) 10ML VIAL/SYR IV SCH ×2 (06:27→14:00)
[2023-10-15 06:37] LABS: Chloride 110 mmol/L (98-107); Potassium 3.8 mmol/L (3.5-5.1); Sodium 138 mmol/L (136-145)
[2023-10-15 06:38] LABS: Anion Gap 5 (5-15); Calcium 8.4 mg/dL (8.7-10.4); Carbon Dioxide 23 mmol/L (20-30)
[2023-10-15 06:43] LABS: Alkaline Phosphatase 95 U/L (46-116); BUN/Creatinine Ratio 14.9 (10.0-20.0); Blood Urea Nitrogen 27 mg/dL (9-23); Glucose 89 mg/dL (74-106)
[2023-10-15 06:44] LABS: Aspartate Aminotransferase 24 U/L (13-40)
[2023-10-15 06:45] LABS: Albumin 3.6 g/dL (3.2-4.8); Bilirubin, Total 1.6 mg/dL (0.2-1.0); Total Protein 6.3 g/dL (5.7-8.2)
[2023-10-15 06:48] LABS: Alanine Aminotransferase 18 U/L (7-40)
[2023-10-15 08:00] VITALS: BP 143/79; PULSE 65; PULSE 70; RESP 20; TEMP 98.1; O2SAT 93
[2023-10-15] MEDS ORDERED: DAPTOmycin 500 MG in SODIUM CHL 0.9% 50 ML IV SCH (08:00)
[2023-10-15] MEDS ORDERED: SODIUM CHLORIDE 0.9% 1,000 ML IV SCH (08:00)
[2023-10-15 09:00] VITALS: BP 143/79; PULSE 65; RESP 20; TEMP 98.1; O2SAT 93
[2023-10-15] MEDS ORDERED: DOXY-286 PO (09:50)
[2023-10-15] MEDS: DOXYCYCLINE 100 MG TAB/CAP PO SCH (09:54)
[2023-10-15] MEDS: AMIODARONE HCL 200 MG TAB PO SCH (09:55)
[2023-10-15] MEDS: CARVEDILOL 12.5 MG TAB PO SCH (09:55)
[2023-10-15] MEDS ORDERED: APIXABAN 5 MG TAB PO SCH ×2 (10:00)
[2023-10-15 13:00] VITALS: BP 130/78; PULSE 66; RESP 19; TEMP 98.1; O2SAT 93
[2023-10-15 13:17] VITALS: BP 130/78; PULSE 66; RESP 19; TEMP 98.1; O2SAT 98
== END 2023-10-15 14:45 | disposition home or self-care (01) | DRG 179 ==
LOC: ER 19:03 → EDBD 19:03 → TELE 23:53 → TELE-WESTW 10-11 17:10
PROVIDERS: ADMIT Nurse Practitioner Family; ATTEND Internal Medicine Geriatric Medicine
PROC: 0JH609Z Insertion of Cardiac Resynchronization Defibrillator Pulse Generator into Chest Subcutaneous Tissue and Fascia, Open Approach (ICD-10-PCS; principal; 2023-10-14)
PROC: 02H63KZ Insertion of Defibrillator Lead into Right Atrium, Percutaneous Approach (ICD-10-PCS; 2023-10-14)
PROC: 02HL3KZ Insertion of Defibrillator Lead into Left Ventricle, Percutaneous Approach (ICD-10-PCS; 2023-10-14)
PROC: 02HK3KZ Insertion of Defibrillator Lead into Right Ventricle, Percutaneous Approach (ICD-10-PCS; 2023-10-14)
PROC: B517YZZ Fluoroscopy of Left Subclavian Vein using Other Contrast (ICD-10-PCS; 2023-10-14)
DX: I47.20 Ventricular tachycardia, unspecified (principal); N17.0 Acute kidney failure with tubular necrosis; I48.0 Paroxysmal atrial fibrillation; I13.0 Hypertensive heart and chronic kidney disease with heart failure and stage 1 through stage 4 chronic kidney disease, or unspecified chronic kidney disease; I42.0 Dilated cardiomyopathy; E66.9 Obesity, unspecified; E78.5 Hyperlipidemia, unspecified; I25.10 Atherosclerotic heart disease of native coronary artery without angina pectoris; R56.9 Unspecified convulsions; E03.9 Hypothyroidism, unspecified; I44.7 Left bundle-branch block, unspecified; R73.9 Hyperglycemia, unspecified; R55 Syncope and collapse; I50.42 Chronic combined systolic (congestive) and diastolic (congestive) heart failure; E66.3 Overweight; N18.32 Chronic kidney disease, stage 3b; Z95.1 Presence of aortocoronary bypass graft; Z95.2 Presence of prosthetic heart valve; Z79.899 Other long term (current) drug therapy; Z82.49 Family history of ischemic heart disease and other diseases of the circulatory system; Z86.711 Personal history of pulmonary embolism; Z86.718 Personal history of other venous thrombosis and embolism; Z87.891 Personal history of nicotine dependence; Z88.5 Allergy status to narcotic agent; Z88.1 Allergy status to other antibiotic agents; Z68.32 Body mass index [BMI] 32.0-32.9, adult
CPT/HCPCS: 33249; 36415; 70450; 71045; 75820; 76775; 78582; 80048; 80053; 80307; 80320; 80329; 81001; 82306; 82570; 83690; 83735; 83935; 83970; 84100; 84156; 84300; 84439; 84443; 84481; 84484; 84550; 85025; 85379; 85610; 85730; 93005; 93306; 99152; G0378; J0690; J2250; Q9967

== ENCOUNTER 2023-12-23 11:07 | Inpatient (IN) | payer MEDICAID, OTHER ==
[~2023-12-23] VITALS: Ht 195.6 cm; Wt 126.0 kg
[~2023-12-23 11:07] MED LIST changes: +DOXY-286 PO
[2023-12-23 11:35] LABS: Basophils # (auto) 0.1 10 ^3/uL (0-0.2); Basophils % (auto) 1.4 % (0.0-2.0); Eosinophils # (auto) 0.1 10 ^3/uL (0-0.8); Eosinophils % (auto) 3.5 % (0.0-7.0); Hematocrit 43.3 % (41.0-53.0); Hemoglobin 14.7 g/dL (13.5-17.5); Lymphocytes # (auto) 0.9 10 ^3/uL (0.4-5.4); Lymphocytes % (auto) 23.2 % (10.0-50.0); Mean Corpuscular Hemoglobin 28.5 pg (28.0-32.0); Mean Corpuscular Volume 84.1 fL (80.0-100.0); Monocytes # (auto) 0.3 10 ^3/uL (0-1.3); Monocytes % (auto) 7.4 % (0.0-12.0); Neutrophils # (auto) 2.6 10 ^3/uL (1.6-8.6); Neutrophils % (auto) 64.5 % (37.0-80.0); Nucleated Red Blood Cells % 0.3 %; Red Blood Cells 5.15 10^6/uL (4.5-5.90); Red Cell Distribution Width 14.4 % (11.8-14.3); White Blood Cell 4.1 10^3/uL (4.4-10.8)
[2023-12-23 11:53] LABS: Chloride 109 mmol/L (98-107); Potassium 4.4 mmol/L (3.5-5.1); Sodium 142 mmol/L (136-145)
[2023-12-23 11:54] LABS: Anion Gap 6 (5-15); Calcium 8.8 mg/dL (8.7-10.4); Carbon Dioxide 27 mmol/L (20-30)
[2023-12-23 11:59] LABS: Glucose 116 mg/dL (74-106)
[2023-12-23 12:00] LABS: BUN/Creatinine Ratio 13.5 (10.0-20.0); Blood Urea Nitrogen 23 mg/dL (9-23); Magnesium 1.9 mg/dL (1.6-2.6)
[2023-12-23] MEDS: ASPirin 81 mg TAB PO ONE (12:07)
[2023-12-23 12:21] LABS: Urine Bacteria NONE SEEN /hpf (None Seen); Urine Blood 2+ /uL (Negative); Urine Clarity Clear (Clear); Urine Color Yellow (Yellow); Urine Protein, UAD 3+ (Negative); Urine Specific Gravity 1.018 (1.001-1.035); Urine Urobilinogen Normal (Negative); Urine WBC 2 /hpf (0 - 3); Urine pH 6.5 (5.0-8.0)
[2023-12-23] MEDS ORDERED: ONDANSETRON HCL 4 MG/2 ML VIAL IV PRN (15:45)
[2023-12-23] MEDS ORDERED: NITROGLYCERIN 0.4 MG SL TAB SL PRN (15:45)
[2023-12-23] MEDS ORDERED: ACETAMINOPHEN 325 MG TAB PO PRN (15:45)
[2023-12-23 16:16] LABS: INR 1.1 (0.9-1.15); Prothrombin Time 11.5 sec (9.3-11.8)
[2023-12-23] MEDS: MORPHINE SULFATE 4 MG/ML SYR/VIAL IV PRN (18:15)
[2023-12-23] MEDS: BUMETANIDE 1 MG TAB PO SCH (18:18)
[2023-12-23 18:19] VITALS: PULSE 62; RESP 14; O2SAT 95
[2023-12-23 19:30] VITALS: PULSE 62; RESP 15; O2SAT 94
[2023-12-23] MEDS: CARVEDILOL 12.5 MG TAB PO SCH (22:00)
[2023-12-23] MEDS ORDERED: PATIENTS OWN MEDICATION (Carvedilol (Coreg) 1 TAB) PO SCH (22:00)
[2023-12-23] MEDS: ATORVASTATIN 20 MG TAB PO SCH (22:17)
[2023-12-23] MEDS: MELATONIN 5 MG TAB PO ONE (22:18)
[2023-12-23] MEDS: APIXABAN 5 MG TAB PO SCH (22:18)
[2023-12-23] MEDS: AMIODARONE HCL 200 MG TAB PO SCH (22:19)
[2023-12-23 22:20] VITALS: BP 139/86; PULSE 59; RESP 18; TEMP 97.7; O2SAT 96
[2023-12-24] VITALS (7 sets, daily range): BP systolic 138–151; BP diastolic 85–92; PULSE 55–61; RESP 16–18; TEMP 97.5–98.6; O2SAT 94–97
[2023-12-24] MEDS: LEVOTHYROXINE SODIUM 50 MCG TAB PO SCH (06:10)
[2023-12-24 06:18] LABS: Basophils # (auto) 0 10 ^3/uL (0-0.2); Basophils % (auto) 0.2 % (0.0-2.0); Eosinophils # (auto) 0.2 10 ^3/uL (0-0.8); Eosinophils % (auto) 4.2 % (0.0-7.0); Hematocrit 40.3 % (41.0-53.0); Hemoglobin 13.8 g/dL (13.5-17.5); Lymphocytes # (auto) 1.1 10 ^3/uL (0.4-5.4); Mean Corpuscular Hemoglobin 28.4 pg (28.0-32.0); Mean Corpuscular Hgb Conc. 34.2 g/dL (32.0-36.0); Mean Corpuscular Volume 83.1 fL (80.0-100.0); Monocytes # (auto) 0.3 10 ^3/uL (0-1.3); Monocytes % (auto) 7.6 % (0.0-12.0); Neutrophils # (auto) 2.2 10 ^3/uL (1.6-8.6); Nucleated Red Blood Cells % 0.6 %; Red Blood Cells 4.86 10^6/uL (4.5-5.90); Red Cell Distribution Width 14.6 % (11.8-14.3); White Blood Cell 3.7 10^3/uL (4.4-10.8)
[2023-12-24 06:35] LABS: Alanine Aminotransferase 25 U/L (7-40); Albumin 3.6 g/dL (3.2-4.8); Alkaline Phosphatase 95 U/L (46-116); Anion Gap 8 (5-15); Aspartate Aminotransferase 27 U/L (13-40); BUN/Creatinine Ratio 12.2 (10.0-20.0); Blood Urea Nitrogen 21 mg/dL (9-23); Carbon Dioxide 26 mmol/L (20-30); Chloride 107 mmol/L (98-107); Glucose 82 mg/dL (74-106); Sodium 141 mmol/L (136-145); Total Protein 6.3 g/dL (5.7-8.2)
[2023-12-24] MEDS: EMPAGLIFLOZIN 10 MG TAB PO SCH (09:30)
[2023-12-24] MEDS: metOLazone 5 MG TAB PO SCH (09:30)
[2023-12-24] MEDS: ASPirin 81 mg TAB PO SCH (09:30)
[2023-12-24] MEDS: EPLERENONE 25 MG PO SCH (09:31)
[2023-12-24] MEDS: SACUBITRIL-VALSARTAN 24mg/26mg TAB PO SCH (10:00)
[2023-12-24] MEDS ORDERED: AMIODARONE HCL 200 MG TAB PO SCH (22:00)
== END 2023-12-24 17:15 | disposition home or self-care (01) | DRG 207 ==
LOC: ER 11:07 → TELE 15:40 → TELE-WESTW 22:00
PROVIDERS: ADMIT Nurse Practitioner Family; ATTEND Internal Medicine Geriatric Medicine
PROC: 4A02XFZ Measurement of Cardiac Rhythm, External Approach (ICD-10-PCS; principal; 2023-12-24)
DX: R00.2 Palpitations (principal); N17.9 Acute kidney failure, unspecified; I42.8 Other cardiomyopathies; I13.0 Hypertensive heart and chronic kidney disease with heart failure and stage 1 through stage 4 chronic kidney disease, or unspecified chronic kidney disease; I50.22 Chronic systolic (congestive) heart failure; I48.20 Chronic atrial fibrillation, unspecified; R07.89 Other chest pain; I25.10 Atherosclerotic heart disease of native coronary artery without angina pectoris; E78.5 Hyperlipidemia, unspecified; E03.9 Hypothyroidism, unspecified; N18.9 Chronic kidney disease, unspecified; Z88.1 Allergy status to other antibiotic agents; Z88.5 Allergy status to narcotic agent; Z79.899 Other long term (current) drug therapy; Z95.810 Presence of automatic (implantable) cardiac defibrillator; Z79.01 Long term (current) use of anticoagulants; Z95.2 Presence of prosthetic heart valve; Z86.718 Personal history of other venous thrombosis and embolism; Z79.84 Long term (current) use of oral hypoglycemic drugs
CPT/HCPCS: 36415; 71046; 80048; 80053; 81001; 83735; 84484; 85025; 85610; 93005; G0378

== ENCOUNTER 2024-05-28 13:28 | Emergency (ER) | payer MEDICAID ==
[~2024-05-28] VITALS: Ht 195.6 cm; Wt 129.4 kg
[~2024-05-28 13:28] MED LIST changes: +CARV-217 PO; -CARV25TA PO
[2024-05-28 15:19] LABS: Urine Bacteria FEW /hpf (None Seen); Urine Blood 2+ /uL (Negative); Urine Clarity Clear (Clear); Urine Color Yellow (Yellow); Urine Protein, UAD 2+ (Negative); Urine Specific Gravity 1.021 (1.001-1.035); Urine Urobilinogen Normal (Negative); Urine WBC 3 /hpf (0 - 3)
[2024-05-28 17:25] VITALS: BP 140/90; PULSE 74; RESP 16; TEMP 98.2; O2SAT 95
== END 2024-05-28 17:43 | disposition home or self-care (01) ==
LOC: ER 13:28
DX: R03.1 Nonspecific low blood-pressure reading (principal); R53.1 Weakness; I13.0 Hypertensive heart and chronic kidney disease with heart failure and stage 1 through stage 4 chronic kidney disease, or unspecified chronic kidney disease; N18.9 Chronic kidney disease, unspecified; I50.89 Other heart failure; E78.5 Hyperlipidemia, unspecified; Z88.6 Allergy status to analgesic agent
CPT/HCPCS: 81001; 93005

== ENCOUNTER 2024-06-27 07:47 | Emergency (ER) | payer MEDICAID ==
[~2024-06-27] VITALS: Ht 195.6 cm; Wt 132.2 kg
[~2024-06-27 07:47] MED LIST changes: +EPLE25TA18 PO; -EPLE25TA4 PO
[2024-06-27] MEDS ORDERED: TRIA0.02 TOP (08:46)
[2024-06-27] MEDS ORDERED: IBUP-1456 PO (08:46)
[2024-06-27] MEDS ORDERED: ACYC1TAB3 PO (08:46)
[2024-06-27 08:50] VITALS: BP 134/82; PULSE 70; RESP 20; TEMP 98; O2SAT 96
== END 2024-06-27 08:59 | disposition home or self-care (01) ==
LOC: ER 07:47
DX: B02.9 Zoster without complications (principal); I11.0 Hypertensive heart disease with heart failure; I50.9 Heart failure, unspecified; I25.10 Atherosclerotic heart disease of native coronary artery without angina pectoris; I48.91 Unspecified atrial fibrillation; E78.5 Hyperlipidemia, unspecified; Z98.890 Other specified postprocedural states; Z88.8 Allergy status to other drugs, medicaments and biological substances; Z79.899 Other long term (current) drug therapy

== ENCOUNTER 2024-12-25 01:49 | Inpatient (IN) | payer MEDICAID ==
[~2024-12-25] VITALS: Ht 172.7 cm; Wt 128.5 kg
[2024-12-25] VITALS (8 sets, daily range): BP systolic 100; BP diastolic 68; PULSE 77–85; RESP 18–24; TEMP 99.3; O2SAT 93–98
[~2024-12-25 01:49] MED LIST changes: +ACYC1TAB3 PO; +TRIA0.02 TOP
--- NOTE | 2024-12-25 02:20 | ED.PDOC ---
History of Present Illness HPI Comments 54-year-old male came to ER via EMS for flu-like symptoms. Patient has a history of hypertension, AFib, congestive heart failure, status post pacemaker defibrillator. States he has been having flu-like symptoms for the past 3 days, with body malaise, weakness, cough, shortness of breath, nausea, vomiting and dizziness. Worsening of symptoms especially dizziness prompted patient to come to the emergency room. Chief Complaint: Flu like Time Seen by MD: 02:18 Primary Care Provider: DANNY Reviewed Notes: [place] Notes Allergies: Coded Allergies: Ceftriaxone (Verified Allergy, Intermediate, rash, itchiness , 10/29/22) Codeine (Verified Allergy, Intermediate, 03/01/22) PT REPORT ALLERGIC REACTION WITH CODEINE Home Meds Active Scripts Triamcinolone Acetonide (Triamcinolone Acetonide) 0.025 % Cre, 1 APPLIC TOP BID, #30 GRAMS Prov:MARIZOL GUARDADO 06/27/24 Acyclovir (Acyclovir) 800 Mg Tab, 800 MG PO 5XD, #35 TAB Prov:MARIZOL GUARDADO 06/27/24 Doxycycline Hyclate (DOXYCYCLINE HYCLATE) 100 Mg Tab, 1 TAB PO BID, #10 TAB Prov:HEATHER MOONEY MD 10/15/23 Carvedilol (Coreg) 25 Mg Tab, 1 TAB PO BID, #60 TAB 5 Refills Prov:HEATHER MOONEY MD 03/31/23 Ergocalciferol (VITAMIN D 71790 UNIT) 50,000 [place], [address] UNIT PO QWEEKLY for 10 Days, #10 CAP Prov:RJ MILLER MD 11/14/22 Bumetanide (Bumex) 0.5 Mg Tab, 2 MG PO BID for 30 Days, #60 TAB Prov:RJ MILLER MD 11/14/22 Potassium Chloride (Klor-Con M20) 20 Meq Tab, 20 MEQ PO DAILY for 30 Days, #30 TAB Prov:RJ MILLER MD 11/14/22 Metolazone (Metolazone) 5 Mg Tab, 10 MG PO DAILY for 30 Days, #60 TAB Prov:RJ MILLER MD 11/14/22 Levothyroxine Sodium (Levothyroxine Sodium) 25 Mcg Tab, 50 MCG PO QAM for 30 Days, #60 TAB Prov:RJ MILLER MD 11/14/22 Amiodarone Hcl (Amiodarone Hcl) 200 Mg Tab, 200 MG PO BID for 30 Days, #60 TAB Prov:RJ MILLER MD 11/14/22 Apixaban Base (ELIQUIS) 5 Mg Tab, 5 MG PO BID for 30 Days, #60 TAB Prov:RJ MILLER MD 11/14/22 Atorvastatin Calcium (Lipitor) 80 Mg Tab, 80 MG PO DAILY for 30 Days, #30 TAB Prov:RJ MILLER MD 11/14/22 Reported Medications Isosorbide Dinitrate (Isosorbide Dinitrate) 20 Mg Tab, 1 TAB PO TID 12/25/24 Sacubitril-Valsartan (Entresto 97-103 mg) 1 Tab Tab, 1 TAB PO BID 12/25/24 Hydralazine Hcl (Hydralazine Hcl) 50 Mg Tab, 1 TAB PO TID 12/25/24 Ferrous Sulfate (Gnp Iron) 325 Mg Tab, 1 TAB PO BID 12/25/24 Cholecalciferol (Vitamin D-3 Super Strengt) 2,000 Unit Tab, 1 TAB PO DAILY 12/25/24 Empagliflozin (Jardiance) 10 Mg Tab, 10 MG PO DAILY, TAB 03/02/22 Eplerenone (Eplerenone) 25 Mg Tab, 25 MG PO DAILY, TAB 03/02/22 Information Source: Patient Mode of Arrival: EMS Severity: Moderate Timing: Days Review of Systems REVIEW OF SYSTEMS: No fever, no chills, (+) fatigue HEENT: No sore throat, no earache, no congestion, no neck pain. Cardiac: No chest pain. No palpitations. Lungs: (+) shortness of breath, no cough. GI: (+) nausea, (+) vomiting, no diarrhea, no constipation, no abdominal pain : No dysuria, frequency, or urgency. No hematuria. Musculoskeletal: No joint pain , no joint swelling, no extremity edema. Skin: No rash, no itching. Neuro: No headache, (+)dizziness, (+) weakness Vital Signs Vital Signs Date Time Temp Pulse Resp B/P (MAP) Pulse Ox O2 Delivery O2 Flow Rate FiO2 2/7/25 04:56 98.5 71 18 110/65 (80) 95 98.5 12/25/24 04:56 Room Air Physical Exam General: Awake, alert and oriented. No acute distress. Skin: Skin in warm, dry and intact. Appropriate color for ethnicity. Nailbeds pink with no cyanosis. HEENT: The head is normocephalic and atraumatic. Conjunctivae are clear without exudates or hemorrhage. Sclera is non-icteric. EOM are intact. No signs of nystagmus. Eyelids are normal in appearance without swelling or lesions. Oral mucosa is pink and moist Neck: The neck is supple with normal range of motion. No JVD. Cardiac: Heart rate and rhythm are normal. No murmurs, gallops, or rubs are auscultated. Respiratory: No signs of respiratory distress. Lung sounds are clear in all lobes bilaterally without rales, ronchi, or wheezes. Abdominal: Abdomen is soft, non-tender without distention. Bowel sounds are present and normoactive in all four quadrants. Extremities: Upper and lower extremities are atraumatic in appearance without deformity or edema. Neurological: The patient is awake, alert and oriented to person, place, and time with normal speech. Speech is clear. There is no facial asymmetry. Psychiatric: Appropriate mood and affect. Good judgement and insight. No visual or auditory hallucinations. Past Medical History PAST MEDICAL HISTORY: AFIB, CAD, CHF, High Lipids, HTN Surgical History: Pacemaker Family History Family History: Family hx of heart paula Social History Smoker: Non-Smoker Alcohol: Denies ETOH Use Drugs: Denies Drug Use Lives In: Home Was a procedure done? Was a procedure done?: No Differential Dx Considerations may include: Anemia, electrolyte imbalance, congestive heart failure, vertigo, viral syndrome, influenza X-Ray, Labs, Meds, VS Vital Signs Date Time Temp Pulse Resp B/P (MAP) Pulse Ox O2 Delivery O2 Flow Rate FiO2 12/25/24 04:56 98.5 71 18 110/65 (80) 95 98.5 12/25/24 04:56 71 18 95 Room Air 12/25/24 02:06 73 12/25/24 01:49 99.0 72 18 138/83 (101) 97 Lab Test 12/25/24 04:33 12/25/24 02:46 Range/Units Influenza Type A Antigen Pending Influenza Type B Antigen Pending SARS-CoV-2 Antigen (Rapid) Pending White Blood Count 3.6 L 4.4-10.8 10^3/uL Red Blood Count 5.46 4.5-5.90 10^6/uL Hemoglobin 16.0 13.5-17.5 g/dL Hematocrit 45.5 41.0-53.0 % Mean Corpuscular Volume 83.3 80.0-100.0 fL Mean Corpuscular Hemoglobin 29.3 28.0-32.0 pg Mean Corpuscular Hemoglobin Concent 35.2 32.0-36.0 g/dL Red Cell Distribution Width 14.8 H 11.8-14.3 % Platelet Count 137 L 140-450 10^3/uL Mean Platelet Volume 8.1 6.9-10.8 fL Neutrophils (%) (Auto) 78.3 37.0-80.0 % Lymphocytes (%) (Auto) 14.7 10.0-50.0 % Monocytes (%) (Auto) 6.3 0.0-12.0 % Eosinophils (%) (Auto) 0.3 0.0-7.0 % Basophils (%) (Auto) 0.4 0.0-2.0 % Neutrophils # (Auto) 2.8 1.6-8.6 10 ^3/uL Lymphocytes # (Auto) 0.5 0.4-5.4 10 ^3/uL Monocytes # (Auto) 0.2 0-1.3 10 ^3/uL Eosinophils # (Auto) 0 0-0.8 10 ^3/uL Basophils # (Auto) 0 0-0.2 10 ^3/uL Nucleated Red Blood Cells 0.3 % Sodium Level 136 136-145 mmol/L Potassium Level 4.2 3.5-5.1 mmol/L Chloride Level 106 98-107 mmol/L Carbon Dioxide Level 19 L 20-31 mmol/L Anion Gap 11 5-15 Blood Urea Nitrogen 14 9-23 mg/dL Creatinine 1.76 H 0.700-1.30 mg/dL Glomerular Filtration Rate Calc 46 >90 mL/min BUN/Creatinine Ratio 8.0 L 10.0-20.0 Serum Glucose 117 H 74-106 mg/dL Calcium Level 8.9 8.7-10.4 mg/dL Total Bilirubin 0.8 0.2-1.0 mg/dL Aspartate Amino Transferase (AST) 46 H 13-40 U/L Alanine Aminotransferase (ALT) 22 7-40 U/L Alkaline Phosphatase 88 46-116 U/L Troponin I High Sensitivity 60 *H </=54 ng/L B-Type Natriuretic Peptide 389.95 0-100 pg/mL Total Protein 6.4 5.7-8.2 g/dL Albumin 3.7 3.2-4.8 g/dL Current Medications Medications (Trade) Dose Ordered Sig/Marlene Route Start Time Stop Time Status Last Admin Sodium Chloride 500 ml @ 1,000 mls/hr Q30M ONCE IV 12/25/24 02:15 12/25/24 02:44 DC 12/25/24 04:42 Meclizine HCl (Antivert Tablet) 50 mg ONCE ONCE PO 12/25/24 02:15 12/25/24 02:16 DC 12/25/24 04:38 Ondansetron HCl (Zofran) 4 mg ONCE ONCE IV 12/25/24 04:30 12/25/24 04:38 DC 12/25/24 04:42 PROCEDURE(s): [place] - ANGIO HEAD/Neck REASON: Severe vertigo, hx afib ORDER NUMBER(s): [id number], ACCESSION NUMBER(s): [id number] INDICATION: Severe vertigo, hx afib COMPARISON: CT scan of the head dated 10/11/2023. TECHNIQUE:CTA head and neck with intravenous contrast. 3D/MIP image postprocessing was performed and images were used for interpretation and reporting. RADIATION DOSE: CTDIvol: 22.34 mGy, DLP: 927.9 mGy*cm FINDINGS: The caliber and course of the internal carotid arteries is unremarkable. No evidence of high-grade stenosis or occlusion of the proximal branch vessels of the [place]. The basilar artery is patent. The intracranial segments of the bilateral vertebral arteries are unremarkable in caliber. Posterior communicating arteries are hypoplastic or absent. No evidence of large aneurysm or arteriovenous malformation. The visualized thoracic aortic arch and proximal great vessels are unremarkable. The left common, internal and external carotid arteries are within normal limits. The right common, internal and external carotid arteries are within normal limits. The cervical segments of the right and left vertebral arteries are within normal limits. The limited visualized lung apices are clear. The surrounding soft tissues and osseous structures are otherwise unremarkable. IMPRESSION: 1. No evidence of high-grade stenosis or occlusion of the proximal branch vessels of the [place]. No evidence of large aneurysm or arteriovenous malformation. 2. No evidence of hemodynamically significant cervical stenosis or dissection. CAROTID STENOSIS REFERENCE Distal internal carotid artery diameter as the denominator for stenosis measurement: MILD = <50% stenosis. MODERATE = 50-69% stenosis. SEVERE = 70-89% stenosis. CRITICAL = 90-99% stenosis. OCCLUDED = 100% stenosis. CHEST RADIOGRAPH Indication: severe vertigo, hx afib Technique: Single frontal view of the chest was obtained Comparison: XY CHEST XRAY 1 VIEW on 12/23/2023 FINDINGS: Lines and Tubes: AICD noted. Loop recorder noted. Lungs: No focal consolidation. Pleura: No effusion. No pneumothorax. Cardiomediastinal contours: Cardiomegaly. Bones: No acute osseous abnormality. IMPRESSION: 1. Cardiomegaly. No acute disease. Time of 1ST Reevaluation: 02:14 Reevaluation 1ST: Unchanged Patient Education/Counseling: Diagnosis, Treatment Family Education/Counseling: No Family Present Departure 1 Departure Time of Disposition: 05:01 Impression: Primary Impression: Vertigo Additional Impressions: Elevated troponin Influenza A Disposition: 09 ADMITTED INPATIENT Condition: Stable Comments 54-year-old male who presents to the ED with severe vertigo like symptoms.. Patient has history of nonischemic cardiomyopathy and valvular heart disease. 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 He has history of DVT. During mitral valve surgery, Maze procedure and also atrial clip were done. Patient continues to have vertigo, he is nauseous and vomiting. Troponin is mildly elevated. He is denying chest pain. He is influenza A positive. Patient admitted for further treatment, evaluation and monitoring. Critical Care Note Critical Care Time?: No Stability Stability form required: No I personally scribed for ARCHIE CRUM MD ([email or web address]) on 12/25/24 at 02:20. Electronically submitted by Javid Vasquez ([email or web address]). I personally scribed for ARCHIE CRUM MD ([email or web address]) on 12/25/24 at 05:09. Electronically submitted by Javid Vasquez ([email or web address]). ARCHIE CRUM MD Dec 25, 2024 02:20
[2024-12-25 03:18] LABS: Basophils # (auto) 0 10 ^3/uL (0-0.2); Basophils % (auto) 0.4 % (0.0-2.0); Eosinophils # (auto) 0 10 ^3/uL (0-0.8); Eosinophils % (auto) 0.3 % (0.0-7.0); Hematocrit 45.5 % (41.0-53.0); Lymphocytes # (auto) 0.5 10 ^3/uL (0.4-5.4); Lymphocytes % (auto) 14.7 % (10.0-50.0); Mean Corpuscular Hemoglobin 29.3 pg (28.0-32.0); Mean Corpuscular Hgb Conc. 35.2 g/dL (32.0-36.0); Mean Corpuscular Volume 83.3 fL (80.0-100.0); Monocytes # (auto) 0.2 10 ^3/uL (0-1.3); Monocytes % (auto) 6.3 % (0.0-12.0); Neutrophils # (auto) 2.8 10 ^3/uL (1.6-8.6); Neutrophils % (auto) 78.3 % (37.0-80.0); Nucleated Red Blood Cells % 0.3 %; Platelet Count (auto) 137 10^3/uL (140-450); Red Blood Cells 5.46 10^6/uL (4.5-5.90); Red Cell Distribution Width 14.8 % (11.8-14.3); White Blood Cell 3.6 10^3/uL (4.4-10.8)
[2024-12-25 03:51] LABS: Alanine Aminotransferase 22 U/L (7-40); Albumin 3.7 g/dL (3.2-4.8); Alkaline Phosphatase 88 U/L (46-116); Anion Gap 11 (5-15); Bilirubin, Total 0.8 mg/dL (0.2-1.0); Blood Urea Nitrogen 14 mg/dL (9-23); Calcium 8.9 mg/dL (8.7-10.4); Chloride 106 mmol/L (98-107); Potassium 4.2 mmol/L (3.5-5.1); Sodium 136 mmol/L (136-145); Total Protein 6.4 g/dL (5.7-8.2)
[2024-12-25 03:58] LABS: Aspartate Aminotransferase 46 U/L (13-40); Carbon Dioxide 19 mmol/L (20-31); Glucose 117 mg/dL (74-106)
[2024-12-25] MEDS: IOHEXOL 350 MG/ML 100ML IJ ONE (04:02)
[2024-12-25] MEDS: MECLIZINE HCL 25 MG TAB PO ONE (04:38)
[2024-12-25] MEDS: ONDANSETRON HCL 4 MG/2 ML VIAL IV ONE (04:42)
[2024-12-25] MEDS: SODIUM CHLORIDE 0.9% 500 ML IV ONE (04:42)
--- NOTE | 2024-12-25 04:53 | DVH ---
INDICATION: Severe vertigo, hx afib COMPARISON: CT scan of the head dated 10/11/2023. TECHNIQUE:CTA head and neck with intravenous contrast. 3D/MIP image postprocessing was performed and images were used for interpretation and reporting. RADIATION DOSE: CTDIvol: 22.34 mGy, DLP: 927.9 mGy*cm FINDINGS: The caliber and course of the internal carotid arteries is unremarkable. No evidence of high-grade s tenosis or occlusion of the proximal branch vessels of the [place]. The basilar artery is pa tent. The intracranial segments of the bilateral vertebral arteries are unremarkable in caliber. Post erior communicating arteries are hypoplastic or absent. No evidence of large aneurysm or arteriovenou s malformation. The visualized thoracic aortic arch and proximal great vessels are unremarkable. The left common, int ernal and external carotid arteries are within normal limits. The right common, internal and external carotid arteries are within normal limits. The cervical segments of the right and left vertebral art eries are within normal limits. The limited visualized lung apices are clear. The surrounding soft ti ssues and osseous structures are otherwise unremarkable. IMPRESSION: 1. No evidence of high-grade stenosis or occlusion of the proximal branch vessels of the [place]. No evidence of large aneurysm or arteriovenous malformation. 2. No evidence of hemodynamically significant cervical stenosis or dissection. CAROTID STENOSIS REFERENCE Distal internal carotid artery diameter as the denominator for stenosis measurement: MILD = <50% stenosis. MODERATE = 50-69% stenosis. SEVERE = 70-89% stenosis. CRITICAL = 90-99% stenosis. OCCLUDED = 100% stenosis. All CT scans at this medical facility are performed using dose modulation techniques as appropriate t o a performed exam including the following: Automated exposure control was utilized; adjustment of th e MA and/or KV according to patient size; and use of iterative reconstruction technique.
--- NOTE | 2024-12-25 04:59 | DVH ---
CHEST RADIOGRAPH Indication: severe vertigo, hx afib Technique: Single frontal view of the chest was obtained Comparison: XY CHEST XRAY 1 VIEW on 12/23/2023 FINDINGS: Lines and Tubes: AICD noted. Loop recorder noted. Lungs: No focal consolidation. Pleura: No effusion. No pneumothorax. Cardiomediastinal contours: Cardiomegaly. Bones: No acute osseous abnormality. IMPRESSION: 1. Cardiomegaly. No acute disease.
[2024-12-25 05:09] LABS: Rapid Influenza B Negative (Negative)
[2024-12-25 05:11] LABS: Rapid Influenza A Positive (Negative)
[2024-12-25 05:12] LABS: COVID19 ANTIGEN SOFIA FIA NEGATIVE (NEGATIVE)
--- NOTE | 2024-12-25 06:08 | ECG ---
[facility] Test Date: 2024-12-25 Test Time: 02:06:58 Pat Name: WILMA AVENDAÑO Department: ER Room: Gender: M Skidder: ROBERT : 1970 Requested By: ARCHIE CRUM Order Number: [id number] Reading MD: David Mooney Measurements Intervals Loyal Rate: 73 P: -44 NC: 143 QRS: -79 QRSD: 135 T: 81 QT: 410 QTc: 452 Interpretive Statements Sinus rhythm RBBB and LAFB Abnormal T, consider ischemia, lateral leads Electronically Signed On 12-25-2024 12:12:21 PST by David Mooney Please click the below link to view image of tracing.
[2024-12-25 09:37] LABS: Urine Bacteria None Seen /hpf (None Seen)
--- NOTE | 2024-12-25 10:28 | DVHHP2 ---
History of Present Illness Reason for Visit: Flu-like symptoms History of Present Illness Laureano Paredes is a 54-year-old male with past medical history of CAD, hypertension, hyperlipidemia, AFib, CKD, CHF, severe vertigo, mitral valve replacement in February 2019, and AICD placed in September of 2023 who presents to the ED for flu-like symptoms x3 days. Patient reports dizziness, weakness, shortness of breath, cough, abdominal pain, nausea, vomiting, and diarrhea. He also reports productive yellow phlegm and now streaks of blood when coughing. Patient reports that he was in [place] and attended the [place] in shortly afterwards became ill. Patient denies any chest pain, fever, chills, or recent ingestion of spoiled food. Cardiovascular: AFIB, CAD, CHF, HTN, hyperipidemia ORGANIZATIONAL DEVELOPMENT DIRECTOR: Vertigo Renal/: Chronic renal insuff Past Surgical History: Other (Mitral valve replacement done in February of 2019 and AICD placed in September of 2023) Smoke: Quit ALCOHOL: none Drugs: Marijuana Lives: Alone Domestic Violence: Neg Review of Systems Constitutional: Yes: Weakness, Other (Dizziness); No: Fever, Chills, Sweats, Malaise Eyes: No: Pain, Vision change, Conjunctivae inflammation, Eyelid inflammation, Other, Redness ENT: No: Ear pain, Ear discharge, Nose pain, Nose discharge, Nose congestion, Mouth pain, Mouth swelling, Throat pain, Throat swelling, Other Respiratory: Cough, Shortness of breath, Sputum; No: Dry, SOB with excertion, Wheezing, Hemoptysis, Pleuritic Pain, Wheezing, Other Cardiovascular: No: Chest Pain, Palpitations, Orthopnea, Paroxysmal Noc. Dyspnea, Edema, Lt Headedness, Other Gastrointestinal: Nausea, Vomiting, Abdominal Pain, Diarrhea; No: Constipation, Melena, Hematochezia, Other Genitourinary: No Dysuria, No Frequency, No Incontinence, No Hematuria, No Retention, No Other Musculoskeletal: No: other, neck pain, shoulder pain, arm pain, back pain, hand pain, leg pain, foot pain Skin: No: Rash, Lesions, Jaundice, Bruising, Other Neurological: No: Weakness, Numbness, Incoordination, Change in speech, Confusion, Seizures, Other Allergies: Coded Allergies: Ceftriaxone (Verified Allergy, Intermediate, rash, itchiness , 10/29/22) Codeine (Verified Allergy, Intermediate, 03/01/22) PT REPORT ALLERGIC REACTION WITH CODEINE Exam Vital Signs Vital Signs Date Time Temp Pulse Resp B/P (MAP) Pulse Ox O2 Delivery O2 Flow Rate FiO2 12/25/24 07:35 99.3 85 18 111/56 (74) 97 99.3 12/25/24 05:46 Room Air* 0 21 General Appearance: Alert, Oriented X3, Cooperative, No acute distress HEENT: Atraumatic, PERRLA, EOMI, Mucous membr. moist/pink Respiratory: Normal air movement Cardiovascular: Regular rate, Normal S1, Normal S2, No murmurs Abdominal: Normal bowel sounds, Soft, No tenderness, No hepatospenomegaly, No masses Extremities: No clubbing, No cyanosis, No edema, Normal pulses, No tender ness/swelling Skin: No rashes, No breakdown, No significant lesion Neuro: Normal gait, Normal speech, Strength at 5/5 X4 ext, Normal tone, Sensation intact Psych/Mental Status: Mental status NL, Mood NL Labs/Xrays Labs Test 12/25/24 09:00 12/25/24 04:33 12/25/24 02:46 Range/Units Influenza Type A Antigen Positive Negative Influenza Type B Antigen Negative Negative SARS-CoV-2 Antigen (Rapid) Negative NEGATIVE White Blood Count 3.6 L 4.4-10.8 10^3/uL Red Blood Count 5.46 4.5-5.90 10^6/uL Hemoglobin 16.0 13.5-17.5 g/dL Hematocrit 45.5 41.0-53.0 % Mean Corpuscular Volume 83.3 80.0-100.0 fL Mean Corpuscular Hemoglobin 29.3 28.0-32.0 pg Mean Corpuscular Hemoglobin Concent 35.2 32.0-36.0 g/dL Red Cell Distribution Width 14.8 H 11.8-14.3 % Platelet Count 137 L 140-450 10^3/uL Mean Platelet Volume 8.1 6.9-10.8 fL Neutrophils (%) (Auto) 78.3 37.0-80.0 % Lymphocytes (%) (Auto) 14.7 10.0-50.0 % Monocytes (%) (Auto) 6.3 0.0-12.0 % Eosinophils (%) (Auto) 0.3 0.0-7.0 % Basophils (%) (Auto) 0.4 0.0-2.0 % Neutrophils # (Auto) 2.8 1.6-8.6 10 ^3/uL Lymphocytes # (Auto) 0.5 0.4-5.4 10 ^3/uL Monocytes # (Auto) 0.2 0-1.3 10 ^3/uL Eosinophils # (Auto) 0 0-0.8 10 ^3/uL Basophils # (Auto) 0 0-0.2 10 ^3/uL Nucleated Red Blood Cells 0.3 % Sodium Level 136 136-145 mmol/L Potassium Level 4.2 3.5-5.1 mmol/L Chloride Level 106 98-107 mmol/L Carbon Dioxide Level 19 L 20-31 mmol/L Anion Gap 11 5-15 Blood Urea Nitrogen 14 9-23 mg/dL Creatinine 1.76 H 0.700-1.30 mg/dL Glomerular Filtration Rate Calc 46 >90 mL/min BUN/Creatinine Ratio 8.0 L 10.0-20.0 Serum Glucose 117 H 74-106 mg/dL Calcium Level 8.9 8.7-10.4 mg/dL Total Bilirubin 0.8 0.2-1.0 mg/dL Aspartate Amino Transferase (AST) 46 H 13-40 U/L Alanine Aminotransferase (ALT) 22 7-40 U/L Alkaline Phosphatase 88 46-116 U/L Troponin I High Sensitivity 60 *H </=54 ng/L B-Type Natriuretic Peptide 389.95 0-100 pg/mL Total Protein 6.4 5.7-8.2 g/dL Albumin 3.7 3.2-4.8 g/dL INDICATION: Severe vertigo, hx afib COMPARISON: CT scan of the head dated 10/11/2023. TECHNIQUE:CTA head and neck with intravenous contrast. 3D/MIP image postprocessing was performed and images were used for interpretation and reporting. RADIATION DOSE: CTDIvol: 22.34 mGy, DLP: 927.9 mGy*cm FINDINGS: The caliber and course of the internal carotid arteries is unremarkable. No evidence of high-grade stenosis or occlusion of the proximal branch vessels of the [place]. The basilar artery is patent. The intracranial segments of the bilateral vertebral arteries are unremarkable in caliber. Posterior communicating arteries are hypoplastic or absent. No evidence of large aneurysm or arteriovenous malformation. The visualized thoracic aortic arch and proximal great vessels are unremarkable. The left common, internal and external carotid arteries are within normal limits. The right common, internal and external carotid arteries are within normal limits. The cervical segments of the right and left vertebral arteries are within normal limits. The limited visualized lung apices are clear. The surrounding soft tissues and osseous structures are otherwise unremarkable. IMPRESSION: 1. No evidence of high-grade stenosis or occlusion of the proximal branch vessels of the [place]. No evidence of large aneurysm or arteriovenous malformation. 2. No evidence of hemodynamically significant cervical stenosis or dissection. CHEST RADIOGRAPH Indication: severe vertigo, hx afib Technique: Single frontal view of the chest was obtained Comparison: XY CHEST XRAY 1 VIEW on 12/23/2023 FINDINGS: Lines and Tubes: AICD noted. Loop recorder noted. Lungs: No focal consolidation. Pleura: No effusion. No pneumothorax. Cardiomediastinal contours: Cardiomegaly. Bones: No acute osseous abnormality. IMPRESSION: 1. Cardiomegaly. No acute disease. Assessment/Plan Assessment/Plan Assessment/Plan: Flu A positive Severe vertigo Thrombocytopenia JOSE Cardiomegaly Labs UA COVID test Flu test Troponin CT head Antiemetics NS given ED Chest x-ray Last echo on 10/11/2023 EF 15% Respiratory treatments Antiemetics Pain Management Tamiflu History of AFib Continue home medications History of CAD History of AICD placed in October 07, 2023 History of mitral valve replacement Follow up outpatient with PCP Chronic hypertension Continue home medications Chronic hyperlipidemia Continue home medications Chronic CHF Continue home medications Substance abuse Counseled patient on cessation of substance abuse FEN/PPX Diet Hep-Lock DVT prophylaxis not indicated patient ambulating, patient thrombocytopenic PUD prophylaxis not indicated no history of GERD or GI bleed Admit to med surg Continue home medications Discussed plan of care with patient and nurse Plan discussed with: Patient My Orders Orders - MISTY SIMMONS Procedure Category Date Status Time Oseltamivir 75mg PHA 12/25/24 Verified Capsule (Tamiflu 75mg 22:00 Albuterol Medneb PHA 12/25/24 Verified (Ventolin Medneb) 12:00 Albuterol Medneb PHA 12/25/24 Verified (Ventolin Medneb) 10:30 Ipratropium Medneb PHA 12/25/24 Verified (Atrovent Medneb) 12:00 Ipratropium Medneb PHA 12/25/24 Verified (Atrovent Medneb) 10:30 Admit ADMIT 12/25/24 Verified 10:23 Allergies ANTONIO 12/25/24 Verified 10:23 Code Status CODE 12/25/24 Verified 10:23 Ondansetron Hcl PHA 12/25/24 Verified (Zofran) 10:30 Complete Blood Count LAB 12/26/24 Verified 04:00 Comprehensive LAB 12/26/24 Verified Metabolic Panel 04:00 Cardiac DIET 12/25/24 Verified Diet-2gna,Lofat,Lochol Lunch Acetaminophen Tablet PHA 12/25/24 Verified (Tylenol Tablet) 10:30 Date of Service: Dec 25, 2024 Billing Provider: MISTY SIMMONS Common Visit Codes: [id number] INP/OBS CARE (HIGH) MISTY SIMMONS Dec 25, 2024 10:28
[2024-12-25] MEDS ORDERED: ERGOCALCIFEROL 50,000 UNIT(1.25MG) CAP PO SCH (10:30)
[2024-12-25] MEDS ORDERED: ALBUTEROL SULF 2.5 MG/0.5ML(0.5%) NEB SOLN NEB PRN (10:30)
[2024-12-25] MEDS ORDERED: IPRATROPIUM BROM 0.5 MG/2.5ML INH SOL NEB PRN (10:30)
[2024-12-25] MEDS ORDERED: ONDANSETRON HCL 4 MG/2 ML VIAL IV PRN (10:30)
[2024-12-25] MEDS ORDERED: ACETAMINOPHEN 325 MG TAB PO PRN (10:30)
[2024-12-25] MEDS ORDERED: ISOS20TA5 PO (10:32)
[2024-12-25] MEDS ORDERED: CHOL20003 PO (10:32)
[2024-12-25] MEDS ORDERED: SACU1TAB4 PO (10:32)
[2024-12-25] MEDS ORDERED: FERR1TAB8 PO (10:32)
[2024-12-25] MEDS ORDERED: HYDR50TA47 PO (10:32)
[2024-12-25 10:40] LABS: Urine Blood 2+ /uL (Negative); Urine Clarity Clear (Clear); Urine Color Yellow (Yellow); Urine Protein, UAD 4+ (Negative); Urine Squamous Epithelial Cell FEW /hpf (<5); Urine Urobilinogen Normal (Negative); Urine WBC 6 /HPF (0-3); Urine pH 6.5 (5.0-9.0)
[2024-12-25 10:48] LABS: Urine Specific Gravity > 1.050 (1.001-1.035)
[2024-12-25] MEDS: OSELTAMIVIR 75 MG CAP PO SCH (11:09)
[2024-12-25] MEDS: AMIODARONE HCL 200 MG TAB PO SCH (11:30)
[2024-12-25] MEDS: IPRATROPIUM BROM 0.5 MG/2.5ML INH SOL NEB SCH (11:39)
[2024-12-25] MEDS: ALBUTEROL SULF 2.5 MG/0.5ML(0.5%) NEB SOLN NEB SCH (11:39)
[2024-12-25] MEDS: BUMETANIDE 1 MG TAB PO SCH (17:53)
[2024-12-25] MEDS: CARVEDILOL 12.5 MG TAB PO SCH (22:04)
[2024-12-25] MEDS: APIXABAN 5 MG TAB PO SCH (22:05)
[2024-12-25] MEDS: ATORVASTATIN 20 MG TAB PO SCH (22:05)
[2024-12-26] VITALS (10 sets, daily range): PULSE 66–86; RESP 16–19; O2SAT 92–98
[2024-12-26 05:03] LABS: Basophils # (auto) 0 10 ^3/uL (0-0.2); Basophils % (auto) 0.6 % (0.0-2.0); Eosinophils # (auto) 0 10 ^3/uL (0-0.8); Eosinophils % (auto) 0.3 % (0.0-7.0); Hematocrit 40.1 % (41.0-53.0); Hemoglobin 14.3 g/dL (13.5-17.5); Lymphocytes # (auto) 0.6 10 ^3/uL (0.4-5.4); Lymphocytes % (auto) 27.3 % (10.0-50.0); Mean Corpuscular Hemoglobin 29.5 pg (28.0-32.0); Mean Corpuscular Hgb Conc. 35.7 g/dL (32.0-36.0); Mean Corpuscular Volume 82.6 fL (80.0-100.0); Monocytes # (auto) 0.2 10 ^3/uL (0-1.3); Monocytes % (auto) 9.3 % (0.0-12.0); Neutrophils # (auto) 1.5 10 ^3/uL (1.6-8.6); Neutrophils % (auto) 62.5 % (37.0-80.0); Platelet Count (auto) 119 10^3/uL (140-450); Red Blood Cells 4.85 10^6/uL (4.5-5.90); Red Cell Distribution Width 14.6 % (11.8-14.3); White Blood Cell 2.3 10^3/uL (4.4-10.8)
[2024-12-26 05:21] LABS: Alanine Aminotransferase 15 U/L (7-40); Albumin 3.5 g/dL (3.2-4.8); Alkaline Phosphatase 78 U/L (46-116); Anion Gap 9 (5-15); Aspartate Aminotransferase 39 U/L (13-40); BUN/Creatinine Ratio 8.7 (10.0-20.0); Bilirubin, Total 0.6 mg/dL (0.2-1.0); Carbon Dioxide 23 mmol/L (20-31); Chloride 103 mmol/L (98-107); Total Protein 6.2 g/dL (5.7-8.2)
[2024-12-26 05:31] LABS: Blood Urea Nitrogen 24 mg/dL (9-23); Calcium 8.4 mg/dL (8.7-10.4); Glucose 107 mg/dL (74-106); Sodium 135 mmol/L (136-145)
[2024-12-26] MEDS: LEVOTHYROXINE SODIUM 25 MCG TAB PO SCH (06:06)
[2024-12-26] MEDS: POTASSIUM CHL 20 Meq TABLET PO SCH (10:03)
[2024-12-26] MEDS: metOLazone 5 MG TAB PO SCH (10:04)
[2024-12-26] MEDS: EMPAGLIFLOZIN 10 MG TAB PO SCH (10:04)
--- NOTE | 2024-12-26 13:47 | DVHPN2 ---
Assessment/Plan Assessment/Plan progress note 54 M with PMH of HFrEF 15% s/p AICD admitted for flu PNA physical exam alert oriented x3 coarse breath sounds, trace crackles s1 s2 rrr abdomen soft nontender trace le edema labs ekg imaging reviewed assessment and plan chronic systolic heart failure, EF 15% not in exacerbation acute on chronic hypoxic respiratory failure 2.2 flu PNA s/p AICD obesity tamiflu resume home meds no steroids albuterol and ipatropium maintain spo2 >95% i&O diet cardiac dvt ppx lovenox Plan discussed with: Patient Date of Service: Dec 26, 2024 Billing Provider: FLAKITA HASSAN MD Common Visit Codes: [id number] INP/OBS CARE(HIGH) FLAKITA HASSAN MD Dec 26, 2024 13:47
[2024-12-26] MEDS: ACETAMINOPHEN 325 MG TAB PO SCH (14:38)
[2024-12-26] MEDS ORDERED: EMPA1TAB3 PO (23:21)
[2024-12-27] VITALS (12 sets, daily range): BP systolic 113–121; BP diastolic 67–77; PULSE 60–93; RESP 15–20; TEMP 97.7–98.6; O2SAT 95–100
[2024-12-27 05:56] LABS: Basophils # (auto) 0 10 ^3/uL (0-0.2); Basophils % (auto) 0.5 % (0.0-2.0); Eosinophils # (auto) 0 10 ^3/uL (0-0.8); Eosinophils % (auto) 1.9 % (0.0-7.0); Hematocrit 40.6 % (41.0-53.0); Hemoglobin 14.4 g/dL (13.5-17.5); Lymphocytes # (auto) 0.7 10 ^3/uL (0.4-5.4); Lymphocytes % (auto) 34.2 % (10.0-50.0); Mean Corpuscular Hgb Conc. 35.5 g/dL (32.0-36.0); Mean Corpuscular Volume 81.8 fL (80.0-100.0); Monocytes # (auto) 0.2 10 ^3/uL (0-1.3); Neutrophils # (auto) 1.1 10 ^3/uL (1.6-8.6); Neutrophils % (auto) 53.4 % (37.0-80.0); Nucleated Red Blood Cells % 0.2 %; Platelet Count (auto) 123 10^3/uL (140-450); Red Blood Cells 4.96 10^6/uL (4.5-5.90); Red Cell Distribution Width 14.4 % (11.8-14.3); White Blood Cell 2.1 10^3/uL (4.4-10.8)
[2024-12-27 06:09] LABS: Anion Gap 11 (5-15); Carbon Dioxide 22 mmol/L (20-31); Chloride 101 mmol/L (98-107); Potassium 3.6 mmol/L (3.5-5.1)
[2024-12-27 06:15] LABS: Glucose 94 mg/dL (74-106)
[2024-12-27 06:16] LABS: BUN/Creatinine Ratio 11.1 (10.0-20.0); Magnesium 2.1 mg/dL (1.6-2.6)
[2024-12-27 06:18] LABS: Blood Urea Nitrogen 28 mg/dL (9-23); Calcium 8.5 mg/dL (8.7-10.4); Phosphorus 4.6 mg/dL (2.4-5.1); Sodium 134 mmol/L (136-145)
--- NOTE | 2024-12-27 12:47 | DVHPN2 ---
Assessment/Plan Assessment/Plan progress note 54 M with PMH of HFrEF 15% s/p AICD admitted for flu PNA seen today during rounds, improving, however due to comorbidities patient is high risk of respiratory failure, will monitor physical exam alert oriented x3 coarse breath sounds, trace crackles s1 s2 rrr abdomen soft nontender trace le edema labs ekg imaging reviewed assessment and plan chronic systolic heart failure, EF 15% not in exacerbation acute on chronic hypoxic respiratory failure 2.2 flu PNA s/p AICD obesity tamiflu resume home meds no steroids albuterol and ipatropium maintain spo2 >95% i&O diet cardiac dvt ppx lovenox Plan discussed with: Patient My Orders Orders - FLAKITA HASSAN MD Procedure Category Date Status Time Acetaminophen Tablet PHA 12/26/24 In Process (Tylenol Tablet) 14:00 Date of Service: Dec 27, 2024 Billing Provider: FLAKITA HASSAN MD Common Visit Codes: [id number] INP/OBS CARE(HIGH) FLAKITA HASSAN MD Dec 27, 2024 12:47
[2024-12-28] VITALS (16 sets, daily range): BP systolic 95–136; BP diastolic 59–77; PULSE 53–73; RESP 14–20; TEMP 97.5–98.6; O2SAT 93–100
[2024-12-28] MEDS: SODIUM CHLORIDE 0.9% 250 ML IV ONE ×2 (12:15→18:38)
[2024-12-28] MEDS: MECLIZINE HCL 25 MG TAB PO ONE (13:04)
--- NOTE | 2024-12-28 14:56 | DVHPN2 ---
Assessment/Plan Assessment/Plan progress note 54 M with PMH of HFrEF 15% s/p AICD admitted for flu PNA seen today during rounds, still having dizziness, not in resp distress. small bolus and reassess physical exam alert oriented x3 coarse breath sounds, trace crackles s1 s2 rrr abdomen soft nontender trace le edema labs ekg imaging reviewed assessment and plan chronic systolic heart failure, EF 15% not in exacerbation acute on chronic hypoxic respiratory failure 2.2 flu PNA s/p AICD obesity tamiflu resume home meds no steroids albuterol and ipatropium maintain spo2 >95% i&O diet cardiac dvt ppx lovenox Plan discussed with: Patient My Orders Orders - FLAKITA HASSAN MD Procedure Category Date Status Time Sodium Chloride 0.9% PHA 12/28/24 Logged 15:00 Meclizine Tablet PHA 12/28/24 Logged (Antivert Tablet) 22:00 Date of Service: Dec 28, 2024 Billing Provider: FLAKITA HASSAN MD Common Visit Codes: [id number] INP/OBS CARE(HIGH) FLAKITA HASSAN MD Dec 28, 2024 14:56
[2024-12-28] MEDS: MECLIZINE HCL 25 MG TAB PO SCH (21:42)
[2024-12-29] VITALS (14 sets, daily range): BP systolic 109–132; BP diastolic 69–84; PULSE 65–95; RESP 15–20; TEMP 97.1–98.2; O2SAT 94–100
[2024-12-29 06:22] LABS: Anion Gap 11 (5-15); Carbon Dioxide 26 mmol/L (20-31)
[2024-12-29 06:26] LABS: Chloride 95 mmol/L (98-107); Potassium 3.4 mmol/L (3.5-5.1); Sodium 132 mmol/L (136-145)
[2024-12-29 06:28] LABS: BUN/Creatinine Ratio 16.2 (10.0-20.0); Glucose 96 mg/dL (74-106)
[2024-12-29 06:33] LABS: Basophils # (auto) 0 10 ^3/uL (0-0.2); Basophils % (auto) 0.5 % (0.0-2.0); Eosinophils # (auto) 0.1 10 ^3/uL (0-0.8); Hematocrit 43.7 % (41.0-53.0); Hemoglobin 15.4 g/dL (13.5-17.5); Lymphocytes # (auto) 0.7 10 ^3/uL (0.4-5.4); Lymphocytes % (auto) 24.8 % (10.0-50.0); Mean Corpuscular Hemoglobin 28.6 pg (28.0-32.0); Mean Corpuscular Hgb Conc. 35.2 g/dL (32.0-36.0); Mean Corpuscular Volume 81.3 fL (80.0-100.0); Monocytes # (auto) 0.3 10 ^3/uL (0-1.3); Monocytes % (auto) 8.9 % (0.0-12.0); Neutrophils # (auto) 1.8 10 ^3/uL (1.6-8.6); Neutrophils % (auto) 61.8 % (37.0-80.0); Nucleated Red Blood Cells % 0.4 %; Platelet Count (auto) 170 10^3/uL (140-450); Red Blood Cells 5.37 10^6/uL (4.5-5.90); Red Cell Distribution Width 14.5 % (11.8-14.3); White Blood Cell 2.8 10^3/uL (4.4-10.8)
[2024-12-29 07:08] LABS: Blood Urea Nitrogen 34 mg/dL (9-23)
[2024-12-29 17:10] LABS: Urine Bacteria None Seen /hpf (None Seen)
[2024-12-29 17:24] LABS: Urine Blood 2+ /uL (Negative); Urine Clarity Clear (Clear); Urine Color Light-Yellow (Yellow); Urine Protein, UAD 1+ (Negative); Urine Specific Gravity 1.007 (1.001-1.035); Urine Squamous Epithelial Cell FEW /hpf (<5); Urine Urobilinogen Normal (Negative); Urine WBC 14 /HPF (0-3); Urine WBC Clumps PRESENT /hpf (None Seen)
[2024-12-30] VITALS (12 sets, daily range): BP systolic 86–107; BP diastolic 59–73; PULSE 51–91; RESP 16–20; TEMP 97.7–98.2; O2SAT 92–99
[2024-12-30] MEDS: POTASSIUM EFFERVESENT TAB 25 MEQ PO ONE (11:45)
--- NOTE | 2024-12-30 14:53 | DVHDS2 ---
Discharge Summary Date of Admission Dec 25, 2024 at 10:23 Date of Discharge: Dec 30, 2024 Labs/Diagnostic Data: Laboratory Results Test 12/29/24 15:51 12/29/24 05:54 12/27/24 05:06 12/26/24 04:43 Urine Color Light-yellow (Yellow) Urine Clarity Clear (Clear) Urine pH 6.0 (5.0-9.0) Urine Specific [place] 1.007 (1.001-1.035) Urine Protein 1+ (Negative) Urine Ketones Negative (Negative) Urine Blood 2+ /uL (Negative) Urine Nitrite Negative (Negative) Urine Bilirubin Negative (Negative) Urine Urobilinogen Normal mg/dL (Negative) Urine Leukocyte Esterase 2+ /uL (Negative) Urine RBC <1 /hpf (0 - 3) Urine WBC Clumps Present /hpf (None Seen) Urine Microscopic WBC 14 /HPF (0-3) Urine Squamous Epithelial Cells Few /hpf (<5) Urine Bacteria None seen /hpf (None Seen) Urine Glucose 1+ mg/dL (Normal) White Blood Count 2.8 10^3/uL (4.4-10.8) Red Blood Count 5.37 10^6/uL (4.5-5.90) Hemoglobin 15.4 g/dL (13.5-17.5) Hematocrit 43.7 % (41.0-53.0) Mean Corpuscular Volume 81.3 fL (80.0-100.0) Mean Corpuscular Hemoglobin 28.6 pg (28.0-32.0) Mean Corpuscular Hemoglobin Concent 35.2 g/dL (32.0-36.0) Red Cell Distribution Width 14.5 % (11.8-14.3) Platelet Count 170 10^3/uL (140-450) Mean Platelet Volume 8.3 fL (6.9-10.8) Neutrophils (%) (Auto) 61.8 % (37.0-80.0) Lymphocytes (%) (Auto) 24.8 % (10.0-50.0) Monocytes (%) (Auto) 8.9 % (0.0-12.0) Eosinophils (%) (Auto) 4.0 % (0.0-7.0) Basophils (%) (Auto) 0.5 % (0.0-2.0) Neutrophils # (Auto) 1.8 10 ^3/uL (1.6-8.6) Lymphocytes # (Auto) 0.7 10 ^3/uL (0.4-5.4) Monocytes # (Auto) 0.3 10 ^3/uL (0-1.3) Eosinophils # (Auto) 0.1 10 ^3/uL (0-0.8) Basophils # (Auto) 0 10 ^3/uL (0-0.2) Nucleated Red Blood Cells 0.4 % Sodium Level 132 mmol/L (136-145) Potassium Level 3.4 mmol/L (3.5-5.1) Chloride Level 95 mmol/L (98-107) Carbon Dioxide Level 26 mmol/L (20-31) Anion Gap 11 (5-15) Blood Urea Nitrogen 34 mg/dL (9-23) Creatinine 2.10 mg/dL (0.700-1.30) Glomerular Filtration Rate Calc 37 mL/min (>90) BUN/Creatinine Ratio 16.2 (10.0-20.0) Serum Glucose 96 mg/dL (74-106) Calcium Level 9.0 mg/dL (8.7-10.4) Phosphorus Level 4.6 mg/dL (2.4-5.1) Magnesium Level 2.1 mg/dL (1.6-2.6) Total Bilirubin 0.6 mg/dL (0.2-1.0) Aspartate Amino Transferase (AST) 39 U/L (13-40) Alanine Aminotransferase (ALT) 15 U/L (7-40) Alkaline Phosphatase 78 U/L (46-116) Total Protein 6.2 g/dL (5.7-8.2) Albumin 3.5 g/dL (3.2-4.8) Test 12/25/24 04:33 12/25/24 02:46 Influenza Type A Antigen Positive (Negative) Influenza Type B Antigen Negative (Negative) SARS-CoV-2 Antigen (Rapid) Negative (NEGATIVE) Troponin I High Sensitivity 60 ng/L (</=54) B-Type Natriuretic Peptide 389.95 pg/mL (0-100) Other Laboratory Tests 12/29/24 05:54 Brief Hx & Hospital Course: 54 yo M with HfrEF 15% admitted for flu pneumonia, patient does not have nay o2 requirements on my assessment but was high risk due to heart failure, patient deveoped dizziness, fluid given back. seen by PT and recommended dc to home. stable to dc Condition at Discharge: Good Final Diagnosis/Problems List chronic systolic heart failure, EF 15% not in exacerbation acute on chronic hypoxic respiratory failure 2.2 flu PNA s/p AICD obesity Discharge Disposition: Home Discharge Instruct/Medications Diet: Consistent carbohydrate, Cardiac 2g Na,low cholest Activity: No Restrictions, As Tolerated Medications: resume home meds 39 Discharge Statement: "Patient was advised to return to the ER or call 911 if any headaches, dizziness, shortness of breath, chest pain, abdominal pain, bleeding, fevers, or worsening of medical condition. Patient was counseled about treatment plan, medications, possible side effects, patientverbalized understanding. All questions were answered to the best of my ability. This discharge took greater then 30 minutes in planning, reviewing documentation, counseling the patient, and discussing with other team members." ASSESSMENT ASSESSMENT Assessment flu A HFrEF without exacerbation Date of Service: Dec 30, 2024 Billing Provider: FLAKITA HASSAN MD Common Visit Codes: [id number] DISCH DAY >30min FLAKITA HASSAN MD Dec 30, 2024 14:53
== END 2024-12-30 16:22 | disposition home or self-care (01) | DRG 469 ==
LOC: ER 01:49 → EDBD 01:49 → ER 05:50 → OVERFLOW 10:23 → EAST 12-26 22:09
PROVIDERS: ADMIT Student in an Organized Health Care Education/Training Program; ATTEND Student in an Organized Health Care Education/Training Program
DX: N17.0 Acute kidney failure with tubular necrosis (principal); J10.00 Influenza due to other identified influenza virus with unspecified type of pneumonia; I13.0 Hypertensive heart and chronic kidney disease with heart failure and stage 1 through stage 4 chronic kidney disease, or unspecified chronic kidney disease; D69.6 Thrombocytopenia, unspecified; I50.22 Chronic systolic (congestive) heart failure; E66.9 Obesity, unspecified; N18.9 Chronic kidney disease, unspecified; Z20.822 Contact with and (suspected) exposure to COVID-19; E78.5 Hyperlipidemia, unspecified; I25.10 Atherosclerotic heart disease of native coronary artery without angina pectoris; I48.91 Unspecified atrial fibrillation; Z88.8 Allergy status to other drugs, medicaments and biological substances; Z88.5 Allergy status to narcotic agent; Z95.2 Presence of prosthetic heart valve; Z95.810 Presence of automatic (implantable) cardiac defibrillator; Z68.41 Body mass index [BMI] 40.0-44.9, adult
CPT/HCPCS: 36415; 70496; 70498; 71045; 80048; 80053; 81001; 83735; 83880; 84100; 84484; 85025; 87426; 87804; 93005; 94640; 96361; 96374; 97163; G0378; J2405